=== PATIENT | male | born 1945 | race Caucasian/White ===

== ENCOUNTER → 2017-02-26 | Outpatient (CLI) | payer OTHER, BC ==
[~2017-02-26] MED LIST: ACYCLOVIR 200200 MG PO; ACYCLOVIR 400400 MG PO; ASPIRIN EC81 M1 PO; ATORVASTATIN CA40 MG PO; COUMADIN 1MG TAB1 M1 PO; COUMADIN 2 MG TA2 M1 PO; COUMADIN 3 MG TA3 MG PO; DAILY MULTIVIT1 EAC1 PO; ERYTHROMYCIN E3.5 G1 OP; FOLIC ACID0.4 MG PO; FOLIC ACID1 MG PO; K-DUR 20 MEQ T20 MEQ PO; LASIX 40 MG TAB40 M2 PO; LEVAQUIN 500 M500 M1 PO; LEVAQUIN 500 M500 M2 PO; LEVOTHROID150 MC1 PO; LEVOTHYROXIN0.137 M1 PO; LIPITOR80 MG PO; LISINOPRIL20 MG PO; LISINOPRIL5 MG PO; LOPRESSOR 12.12.5 MG PO; LOPRESSOR25 PO; LOVENOX SC; METOPROLOL TART25 M1 PO; MULTAQ400 MG PO; MULTIVITAMINS PO; NIFEREX PO; NORVASC10 MG PO; PRILOSEC 20 MG20 MG PO; PRINIVIL10 MG PO; PRINIVIL20 MG PO; SIMVASTATIN40 MG PO; SYNTHROID112 MCG PO; TRAMADOL 50 MG50 MG PO; VYTORIN 10-401 EACH PO; ZESTRIL20 MG PO; ZETIA10 MG PO
== END ==
LOC: MRI 13:28
DX: M47.894 Other spondylosis, thoracic region (principal); G95.9 Disease of spinal cord, unspecified; M54.5 Low back pain

== ENCOUNTER → 2017-03-10 | Outpatient (CLI) | payer OTHER, BC | LOC: CAT 02:16 | DX: M47.892 Other spondylosis, cervical region (principal); G95.89 Other specified diseases of spinal cord; M54.2 Cervicalgia ==

== ENCOUNTER 2017-12-13 05:31 | Inpatient (IN) | payer OTHER, BC ==
[~2017-12-13] VITALS: Ht 180.3 cm; Wt 104.3 kg
[2017-12-13] VITALS (7 sets, daily range): BP systolic 112–176; BP diastolic 61–115
--- NOTE | ~2017-12-13 | EKG ---
[place] [address] [facility] [place] [place] [address] ELECTROCARDIOGRAM REPORT Name: JO NUNEZ Room #: 360-P ADM IN M.R.#: [id number] Admission: 12/13/17 Attend Phys: Brian Pinedo MD Discharge: Date of : 47 Report #: [id number] THIS REPORT FOR: //name// [facility] ED Test Date: 2017-12-13 Test Time: 05:54:06 Pat Name: JO NUNEZ Department: Room: 360 P Gender: M Front Maker Lockstitch: [email or web address] : 1945 Requested By: Brian Pinedo Order Number: [id number] MD: Garry Eric Measurements Intervals [place] Rate: 122 P: 88 DE: 118 QRS: 53 QRSD: 112 T: 71 QT: 316 QTc: 451 Interpretive Statements Probable atrial flutter with 2-1 AV conduction Incomplete left bundle branch block Low voltage, extremity leads Baseline wander in lead(s) V1 No previous ECGs available for comparison Electronically Signed On 12-13-2017 11:30:04 CLINICAL PROFESSOR by Garry Eric [email or web address] <ELECTRONICALLY SIGNED> By: Garry Eric MD, [facility] 12/13/17 1130 0554 0554 Garry Eric MD, [facility] /EPI
--- NOTE | ~2017-12-13 | HC ---
[facility] [place] [address] CONSULTATION Name: JO NUNEZ Room #: 360-P [facility] IN M.R.#: [id number] Admission: 12/13/17 Attend Phys: Brian Pinedo MD Discharge: Date of : 46 Report #: [id number] THIS REPORT FOR: //name// CC: Brian Sandoval REASON FOR CONSULTATION: Shortness of breath. HISTORY OF PRESENT ILLNESS: The patient is a 72-year-old gentleman with a complicated history including 3-vessel bypass and mitral valve repair for cardiogenic shock in 2009. Coronary angiography in November 2013 revealed patent grafts to the LAD, marginal branch and PDA. His ejection fraction is in the 40-45% range. His history includes atrial fibrillation and atrial flutter for which he has been maintained on beta blockade and anticoagulant therapy. Now presents with increasing shortness of breath with orthopnea. He reports that after cervical spine surgery last fall, his diuretic was discontinued. He denies chest heaviness or pressure or ischemic type symptoms. No history of near syncope or syncope. ALLERGIES: No known drug allergies. MEDICATIONS: Include warfarin, metoprolol 50 mg twice daily, Zetia 10 mg daily, lisinopril 20 mg daily, atorvastatin 40 mg daily. 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 He underwent left-sided Molina maze at the time of his surgery. SOCIAL HISTORY: He is a nonsmoker, occasional drinker. FAMILY HISTORY: Unremarkable for premature coronary disease. REVIEW OF SYSTEMS: All systems negative except as that noted above. PHYSICAL EXAMINATION: GENERAL: A pleasant gentleman in no distress. VITAL SIGNS: Blood pressure is 150/90, heart rate of 120 and regular. He is afebrile, 5 feet 11 inches tall, 230 pounds. HEENT: There are neither xanthelasma, subcutaneous xanthomata, oral mucosal or digital cyanosis or kyphoscoliosis present. CHEST: Reveals diminished breath sounds at both bases. CARDIAC: Reveals a tachycardic regular rate and rhythm with normal S1, S2. Jugular venous pressure is elevated. ABDOMEN: Soft and nontender. EXTREMITIES: Reveal 1+ pitting edema. Radial pulses are 2+. NEUROLOGIC: He is alert with a nonfocal exam. [address] [address] CONSULTATION Name: JO NUNEZ CRYSTAL Room #: 360-[facility] IN M.R.#: [id number] Admission: 12/13/17 Attend Phys: Brian Pinedo MD Discharge: Date of : 46 Report #: [id number] LABORATORY DATA: EKG from the Emergency Department was interpreted as sinus tachycardia, although I believe this to be atrial flutter with 2:1 AV conduction and left bundle branch block. Sodium 144, potassium 4.1, creatinine 1.0. ProBNP of 2816, troponin 0.15. INR of 3.3. White count 7.8, hemoglobin 12, hematocrit 38, platelet count 214. Chest x-ray suggests congestive heart failure. IMPRESSION: 1. Vmffn-pz-kikbkih systolic heart failure. 2. Atrial flutter with a rapid ventricular response. 3. Coronary artery disease with prior bypass; mitral valve repair. 4. Sleep apnea. 5. Hypertension. 6. Dyslipidemia. RECOMMENDATIONS: 1. Continued use of beta blockade, addition of low dose Cardizem for added rate control. 2. Intravenous diuretic therapy. I suspect that he will need diuretic going forward, may be not daily, but several days a week. 3. Continued anticoagulant therapy (INR 2-3 range). 4. Continued efforts towards aggressive risk factor modification. Further thoughts will be forthcoming based on this evaluation. Thank you for asking me to participate in the patient's care. <ELECTRONICALLY SIGNED> By: Garry Eric MD, [facility] 12/14/17 0908 1048 [id number] Garry Eric MD, FACC /nt
--- NOTE | ~2017-12-13 | EKG ---
[address] [place] [address] ELECTROCARDIOGRAM REPORT Name: JO NUNEZ Room #: 360-P ADM IN M.R.#: [id number] Admission: 12/13/17 Attend Phys: Brian Pinedo MD Discharge: Date of : 46 Report #: [id number] THIS REPORT FOR: //name// [facility] ED Test Date: 2017-12-13 Test Time: 05:56:37 Pat Name: JO NUNEZ Department: Room: 360 Gender: M Electron Beam Photo Mask Maker: [email or web address] : 1945 Requested By: Sebastian Foster Order Number: [id number] MD: Garry Eric Measurements Intervals [place] Rate: 122 P: 0 AL: 83 QRS: 67 QRSD: 110 T: 119 QT: 324 QTc: 462 Interpretive Statements Probable atrial flutter with 2-1 AV conduction Incomplete left bundle branch block Low voltage, extremity leads Baseline wander in lead(s) V2 Compared to ECG 10/13/2016 09:21:45 No significant change was found Electronically Signed On 12-13-2017 11:30:37 NAILER OPERATOR by Garry Eric [email or web address] <ELECTRONICALLY SIGNED> By: Garry Eric MD, [facility] 12/13/17 1130 0556 0556 Garry Eric MD, [facility] /EPI
[~2017-12-13 05:31] MED LIST changes: +COLCHICINE0.6 MG PO; +PREDNISONE 20 M20 MG PO
[2017-12-13] MEDS ORDERED: ALLOPURINOL 10100 M1 PO (06:27)
[2017-12-13] MEDS ORDERED: SYNTHROID50 MCG PO (06:28)
[2017-12-13 06:32] LABS: ABSOLUTE NEUTROPHILS 6.1 thou/uL (1.4-8.2); BASOPHILS 1.5 % (0.0-2.0); EOSINOPHILS 2.1 % (0.0-3.0); HEMATOCRIT 38.2 % (42.0-52.0); HEMOGLOBIN 12.2 gm/dL (14.0-18.0); LYMPHOCYTES 13.2 % (24.0-44.0); MCH 28.2 pg (26.0-34.0); MCHC 31.9 g/dL (28.0-37.0); MCV 88.4 fL (80.0-100.0); MONOCYTES 4.7 % (1.0-8.0); PLATELET COUNT 214 thou/uL (150-400); POLYS 78.5 % (36.0-66.0); RBC 4.32 mil/uL (4.50-6.00); RDW 18.5 % (10.5-14.5); WBC 7.8 thou/uL (4.0-11.0)
[2017-12-13 06:40] LABS: CALCIUM 9.3 mg/dL (8.5-10.1); POTASSIUM 4.1 mmol/L (3.5-5.1)
[2017-12-13 06:46] LABS: INR 3.3; PROTIME 33.2 Seconds (9.3-11.4)
[2017-12-13 06:48] LABS: TROPONIN-I 0.15 ng/mL (<0.06)
[2017-12-14 04:00] VITALS: BP 140/65
[2017-12-14 06:57] LABS: ABSOLUTE NEUTROPHILS 5.2 thou/uL (1.4-8.2); BASOPHILS 0.9 % (0.0-2.0); EOSINOPHILS 2.3 % (0.0-3.0); HEMATOCRIT 37.1 % (42.0-52.0); HEMOGLOBIN 11.8 gm/dL (14.0-18.0); LYMPHOCYTES 12.9 % (24.0-44.0); MCH 27.9 pg (26.0-34.0); MCHC 31.8 g/dL (28.0-37.0); MCV 87.5 fL (80.0-100.0); PLATELET COUNT 204 thou/uL (150-400); POLYS 77.9 % (36.0-66.0); RBC 4.24 mil/uL (4.50-6.00); RDW 18.7 % (10.5-14.5); WBC 6.7 thou/uL (4.0-11.0)
[2017-12-14 07:03] LABS: CALCIUM 9.2 mg/dL (8.5-10.1); CREATININE 1.1 mg/dL (0.7-1.3); POTASSIUM 3.7 mmol/L (3.5-5.1)
[2017-12-14 08:23] VITALS: BP 147/78
[2017-12-14 08:25] VITALS: BP 147/78
[2017-12-14 13:26] VITALS: BP 103/60
[2017-12-14 16:41] VITALS: BP 120/75
[2017-12-14 19:21] VITALS: BP 107/65
[2017-12-15 03:51] VITALS: BP 122/77
[2017-12-15 06:26] LABS: BASOPHILS 0.8 % (0.0-2.0); EOSINOPHILS 2.2 % (0.0-3.0); HEMATOCRIT 36.8 % (42.0-52.0); HEMOGLOBIN 11.7 gm/dL (14.0-18.0); LYMPHOCYTES 14.2 % (24.0-44.0); MCH 27.8 pg (26.0-34.0); MCHC 31.8 g/dL (28.0-37.0); MCV 87.5 fL (80.0-100.0); MONOCYTES 7.7 % (1.0-8.0); PLATELET COUNT 205 thou/uL (150-400); POLYS 75.1 % (36.0-66.0); RBC 4.21 mil/uL (4.50-6.00); RDW 18.6 % (10.5-14.5); WBC 6.7 thou/uL (4.0-11.0)
[2017-12-15 06:38] LABS: CALCIUM 9.2 mg/dL (8.5-10.1); CREATININE 1.1 mg/dL (0.7-1.3); POTASSIUM 3.9 mmol/L (3.5-5.1)
[2017-12-15 07:55] VITALS: BP 122/77
[2017-12-15] MEDS ORDERED: LASIX 40 MG TAB40 M2 PO (08:15)
[2017-12-15] MEDS ORDERED: POTASSIUM20 PO (08:22)
[2018-04-02] MEDS ORDERED: MULTIVITAMINS1 EAC7 PO (09:39)
[2018-04-02] MEDS ORDERED: NEURONTIN 300300 M1 PO (10:04)
[2018-06-02] MEDS ORDERED: ATORVASTATIN CA40 MG PO (08:02)
[2018-06-02] MEDS ORDERED: NEURONTIN 300300 M1 PO (08:02)
[2018-06-09] MEDS ORDERED: NEURONTIN 300300 M1 PO (08:21)
[2018-06-09] MEDS ORDERED: ATORVASTATIN CA40 MG PO (08:21)
== END 2017-12-15 10:55 | disposition home or self-care (01) | DRG 291 ==
LOC: ER 05:31 → TBA 07:29 → 3W 07:29
PROVIDERS: Emergency Medicine; Family Medicine
DX: I11.0 Hypertensive heart disease with heart failure (principal); E43 Unspecified severe protein-calorie malnutrition; I48.92 Unspecified atrial flutter; D68.59 Other primary thrombophilia; I50.43 Acute on chronic combined systolic (congestive) and diastolic (congestive) heart failure; I48.0 Paroxysmal atrial fibrillation; I25.5 Ischemic cardiomyopathy; I25.10 Atherosclerotic heart disease of native coronary artery without angina pectoris; E78.5 Hyperlipidemia, unspecified; G47.33 Obstructive sleep apnea (adult) (pediatric); Z79.82 Long term (current) use of aspirin; Z79.899 Other long term (current) drug therapy; I25.2 Old myocardial infarction; Z79.01 Long term (current) use of anticoagulants; Z95.1 Presence of aortocoronary bypass graft; Z82.49 Family history of ischemic heart disease and other diseases of the circulatory system; Z83.3 Family history of diabetes mellitus; Z82.3 Family history of stroke
CPT/HCPCS: 10779

== ENCOUNTER → 2018-04-02 | Outpatient (CLI) | payer OTHER, BC ==
[~2018-04-02] VITALS: Ht 180.3 cm; Wt 105.2 kg
[~2018-04-02] MED LIST changes: +ALLOPURINOL 10100 M1 PO; +MULTIVITAMINS1 EAC7 PO; +NEURONTIN 300300 M1 PO; +POTASSIUM20 PO; +SYNTHROID50 MCG PO
--- NOTE | ~2018-04-02 | HPC ---
[facility] [place] [address] PAIN MANAGEMENT CONSULTATION Name: ENRIQUEJO CRYSTAL Room #: REG [facility] Fany.#: [id number] Admission: 04/02/18 Attend Phys: Lee Mario DO Discharge: Date of : 46 Report #: [id number] THIS REPORT FOR: //name// CC: Chasity Rivera-Jos Mario DATE OF SERVICE: 04/02/2018 The patient is a 72-year-old gentleman, prior seen by Dr. Jj Weber for axial back pain and cervicalgia. He did well with epidural injection at L4-L5. Lumbar facet had afforded nominal relief per the dictations. He is somewhat lost to follow up after 09/2016. He returns to Pain Clinic today with a new complaint. He has had multiple interventions in a year and a half since he was seen. We spent approximately 30 minutes together today reviewing interval health history and current complaint. The patient states that he developed low back pain and subsequently had a cervical posterior fusion 08/05/2017. He states following the fusion, he had burning paresthesia and dysesthesia in the left lower leg lateral aspect. He subsequently had lumbar decompressive laminectomy at L2-L3 and lumbar fusion at L5-S1. This was primarily done for left hip pain. The patient notes that the left lateral lower extremity dysesthesia predated the back surgery. He denies saddle anesthesia, bowel or bladder continence changes. He does deny any weakness though notes that he has a "catch" in his left hip. PHYSICAL EXAMINATION: Does show an antalgic gait, somewhat ataxic. Flexion is limited to 45 degrees. Slight decreased right lower extremity extension strength about 3/5, contralateral to the left-sided pain. Otherwise, strength is 4/5. Patellar and Achilles reflexes, patellar reflexes are preserved, 2/4; Achilles reflex is absent on the left 1/4 on the right. Straight leg raise is negative. Does have intact 2-point discrimination of lower extremity despite the subjective paresthesia in the left lower extremity. He is tender over the SI joints and has equivocally positive Rayo and Gaenslen's test on the left. ASSESSMENT: 1. Neuropathic pain requiring complex medication management status post both cervical and decompressive laminectomies. Left L4 distribution neuropathy, status post a cervical posterior fusion. 2. Left sacroiliac mediated pain by clinical exam and history. RECOMMENDATIONS: 1. Gabapentin 300 mg at bedtime for 7 days and then 2 at bedtime. Hopefully, this will help with the burning dysesthesia in left lower leg. May be considered a spinal cord stimulator candidate, though he is on Coumadin, which does complicate this decision process. 2. Left SI joint injection under fluoroscopy today. [place] [address] PAIN MANAGEMENT CONSULTATION Name: JO NUNEZ Room #: REG MIRA Rivera#: [id number] Admission: 04/02/18 Attend Phys: Lee Mario DO Discharge: Date of : 46 Report #: [id number] Gus as needed. PROCEDURE NOTE: Left SI joint injection under fluoroscopy. PROCEDURE: After written informed consent was obtained, the patient was taken to the fluoroscopy suite and placed in prone position. After sterile prep and drape, skin wheal was raised. A 22-gauge stylet needle was placed to contact the inferior aspect of the left SI. Negative aspiration was accomplished. A 1 mL of Omnipaque was injected, which showed spread within the joint followed with 40 mg triamcinolone plus 2 mL of 0.5% preservative-free bupivacaine. Needle was removed, area was cleaned, Band-Aid was applied. The patient monitored for an appropriate period of time, discharged in good and stable condition. <ELECTRONICALLY SIGNED> By: Lee Mario DO 04/07/18 0725 [id number] Lee Mario DO /nt
[2018-04-02 09:31] VITALS: BP 139/91
== END | disposition home or self-care (01) ==
LOC: PAIN 07:36
DX: M53.3 Sacrococcygeal disorders, not elsewhere classified (principal); M79.2 Neuralgia and neuritis, unspecified; I11.0 Hypertensive heart disease with heart failure; I50.9 Heart failure, unspecified; M10.9 Gout, unspecified; Z98.890 Other specified postprocedural states; Z79.01 Long term (current) use of anticoagulants; Z79.899 Other long term (current) drug therapy; Z79.82 Long term (current) use of aspirin

== ENCOUNTER → 2018-06-02 | Outpatient (CLI) | payer OTHER, BC ==
[~2018-06-02] VITALS: Ht 182.9 cm; Wt 108.9 kg
--- NOTE | ~2018-06-02 | HPC ---
[facility] [place] [address] PAIN MANAGEMENT CONSULTATION Name: ENRIQUEJO CRYSTAL Room #: REG [facility] Fany.#: [id number] Admission: 06/02/18 Attend Phys: Mariely Broussard MD Discharge: Date of : 46 Report #: [id number] THIS REPORT FOR: //name// CC: Mariely Sandoval MD DATE OF SERVICE: 06/02/2018 FOLLOWUP COMPLAINT: Here for evaluation of back pain. FOLLOWUP HISTORY: The patient is a 72-year-old gentleman who has been seen in the pain clinic in the past because of cervical problems. He has since had cervical surgery and noted improvement. He had some problems with his back. He had undergone epidural steroid injections. He underwent surgery for the L4-L5 area to help control his lumbar radicular pain. He returns to the pain clinic today indicating that he is having some pain in his low back as well as down into his left morales. He was seen at the last visit to the Pain Clinic underwent a SI joint injection. He noted above 50% improvement in pain, but still continues to have pain that is problematic in the lower portion of his back with pain that radiates along the lateral portion of his posterior calf. There is burning and tingling sensation. He rates it as a 3-4. Pain is worse with walking, standing, and he is not sure of anything that totally alleviate his pain. Last surgery on the back was on 01/06/2018. He is on Coumadin and is being anticoagulated. He states that he has had a heart valve replacement in the past. ALLERGIES: No known drug allergies. MEDICATIONS: Gabapentin 300 mg, Lipitor 40 mg, multivitamin, Synthroid 50 mcg, Zyloprim 100 mg, lisinopril 20 mg, Zetia 10 mg, Coumadin 2 mg, Lopressor 25 mg twice a day, and aspirin 81 mg. PAST MEDICAL HISTORY: Type 2 diabetes, heart valve surgery, and hypertension. SOCIAL HISTORY: He is retired, does not smoke, does not drink. He is . REVIEW OF SYSTEMS: Generally good health, ringing in the ears, and heart trouble. PAIN CLINIC ASSESSMENT: 1. Osteoarthritis. The patient is being treated for osteoarthritis. He is not being treated for rheumatoid arthritis. 2. Height 6 feet 0 inches. Weight 240 pounds, BMI 32.5 minutes. 3. Vital signs: Blood pressure 147/98, pulse 78, respiratory rate 16, room air saturation is 98%. [facility] [address] [place] [address] PAIN MANAGEMENT CONSULTATION Name: JO NUNEZ Room #: REG [facility]#: [id number] Admission: 06/02/18 Attend Phys: Mariely Broussard MD Discharge: Date of : 46 Report #: [id number] 4. Pain intensity 3-4. 5. Fall risk. The patient has not fallen in the last 3 months. 6. Blood thinner. The patient is on Coumadin. 7. History of hypertension. The patient is being treated for hypertension. 8. Opioid greater than 6 weeks. The patient is not on opioid medication. 9. Risk assessment tool, low for opioid use. 10. Functional assessment tool, . 11. Recreational drug use. The patient denies use of recreational drugs. 12. Tobacco: The patient has never smoked. 13. Alcohol: The patient denies use of alcoholic beverages. PHYSICAL EXAMINATION: GENERAL: The patient is a well-developed, well-nourished white male. He appears his stated age. He is alert and oriented x 3. Affect is appropriate. Speech is fluent. HEENT: Normocephalic, atraumatic. Extraocular eye muscles intact. NECK: The patient has a long scar in the posterior portion of his neck after having gone cervical repair of his neck. No adenopathy. HEART: Regular rate. CHEST: Clear to auscultation. ABDOMEN: Protuberant. MUSCULOSKELETAL: Upper muscle strength is judged to be 4.5/5. Lower muscle strength is judged to be 4.5/5 for lower muscle strength. The patient walks with a slightly antalgic gait. IMPRESSION: 1. History of lumbar radiculopathy and status post surgery in December 2017 for lumbar surgery. 2. Cervical radicular history status post cervical fusion. 3. Neuropathic pain. 4. History of left sacroiliitis. 5. Hypercholesterolemia. 6. Hypertension. RECOMMENDATIONS: We discussed treatment options with the patient. The patient continued to have some pain and discomfort. Pain is radiating down the posterior portion of his left leg. It is in the L5-S1 dermatomal distribution. He will return to the pain clinic at which time a transforaminal epidural steroid injection will be provided. The risks and benefits of the procedure were discussed. The patient is on Coumadin. He will discontinue his Coumadin. He will follow with his heart doctor to see if he is able to come off Coumadin. He will return to the pain clinic at which time he will undergo treatment for his radicular pain. Risks and benefits as we discussed have been reviewed and [facility] [address] [place] [address] PAIN MANAGEMENT CONSULTATION Name: JO NUNEZ Room #: LITO Rivera#: [id number] Admission: 06/02/18 Attend Phys: Mariely Broussard MD Discharge: Date of : 46 Report #: [id number] the patient would like to proceed. We would like to thank you for letting us participate in his care. We hope he continues to improve. <ELECTRONICALLY SIGNED> By: Mariely Broussard MD 06/04/18 1631 1039 1406 Mariely Broussard MD /[facility]
[2018-06-02 08:59] VITALS: BP 147/98
== END ==
LOC: PAIN 04-16 06:54
DX: M54.2 Cervicalgia (principal); M54.5 Low back pain; M79.1 Myalgia; E78.00 Pure hypercholesterolemia, unspecified; I10 Essential (primary) hypertension; E11.9 Type 2 diabetes mellitus without complications

== ENCOUNTER → 2018-06-09 | Outpatient (CLI) | payer OTHER, BC ==
[~2018-06-09] VITALS: Ht 180.3 cm; Wt 108.0 kg
--- NOTE | ~2018-06-09 | HPC ---
[facility] [place] [address] PAIN MANAGEMENT CONSULTATION Name: JO NUNEZ Room #: REG [facility] Nicole#: [id number] Admission: 06/09/18 Attend Phys: Mariely Broussard MD Discharge: Date of : 46 Report #: [id number] THIS REPORT FOR: //name// CC: Mariely Sandoval MD DATE OF SERVICE: 06/09/2018 PRIMARY CARE PHYSICIAN: Chasity Sandoval MD FOLLOWUP COMPLAINT: Here for another injection. FOLLOWUP HISTORY: The patient is a 72-year-old gentleman who has been seen in the pain clinic because of cervical radicular problems. He also has problems with his low back area. He has undergone surgery in the L4-L5 area with placement of rods and screws. He is having some pain and discomfort, which is radiating down his low back with a burning pain in his "shins" as well as some discomfort in the area of his knee and ankle on the left. He underwent surgery on 01/06/2018. Notes that his pain is worse with activities of daily living such as walking, standing and improves when he is sitting or lying down. At this juncture, he feels that the pain has increased and would like to consider treatment for this area. He did have some problem with his SI joint in the past. Pain was at a 3-4, but now has risen to that of a 5. He was on Coumadin and has stopped his Coumadin with the hope of proceeding with a transforaminal epidural steroid injection. The patient does have a heart valve replacement. ALLERGIES: No known drug allergies. MEDICATIONS: Gabapentin 300 mg, Lipitor 40 mg, multivitamin, Synthroid 50 mcg, Zyloprim 100 mg, lisinopril 20 mg, Zetia 10 mg, Coumadin 2 mg, Lopressor 25 mg b.i.d., aspirin 81 mg. PAIN CLINIC ASSESSMENT: 1. Osteoarthritis. The patient is being treated for osteoarthritis. He has not been treated for rheumatoid arthritis. 2. Height 6 feet 0 inches, weight 238 pounds, BMI is 33. 3. Vital signs: Blood pressure 120/75, pulse 58, respiratory rate 14, room air saturation 95%. 4. Pain intensity 03/18. 5. Fall risk. The patient has not fallen in the last 3 months. 6. Blood thinner. The patient is on Coumadin, has stopped taking this medication with the thought of undergoing a transforaminal epidural steroid injection today. 7. History of hypertension. The patient is being treated for hypertension. 8. Opioid therapy greater than 6 weeks. The [place] [address] PAIN MANAGEMENT CONSULTATION Name: JO NUNEZ Room #: REG MIRA Rivera#: [id number] Admission: 06/09/18 Attend Phys: Mariely Broussard MD Discharge: Date of : 46 Report #: [id number] medication. 9. Risk assessment tool, low for use of opioids. 10. Functional assessment tool, . 11. Recreational drug use. The patient denies use of recreational drugs. 12. Tobacco. The patient has never smoked cigarettes. 13. Alcohol. The patient denies use of alcoholic beverages. PHYSICAL EXAMINATION: GENERAL: The patient is a well-developed, well-nourished white male. Appears his stated age. He is alert and oriented x 3. Affect is appropriate. Speech is fluent. HEENT: Normocephalic, atraumatic. Extraocular eye muscles intact. Sclerae nonicteric. The patient has a long scar in the posterior portion of his neck having undergone cervical repair of his neck. No adenopathy. HEART: S1 and S2 normal. Regular rate. The patient has a heart valve replacement. Clear to auscultation. ABDOMEN: Protuberant. MUSCULOSKELETAL: Upper muscle strength is judged to be 4.5/5. Lower extremity muscle strength is judged to be 4.5/5 for the lower extremity muscles. The patient walks with slight antalgic gait. IMPRESSION: 1. Lumbar radiculopathy, status post surgery in 12/2017 for lumbar surgery. 2. Cervical radiculopathy history, status post cervical fusion. 3. Neuropathic pain. 4. History of left sacroiliitis. 5. Hypercholesterolemia. 6. Hypertension. RECOMMENDATIONS: We discussed treatment options with the patient. Risks and benefits of a transforaminal epidural steroid injection were again reviewed. Possible complications of the procedure were discussed and the patient elects to proceed. PROCEDURE NOTE: The patient was placed in the prone position. Fluoroscopy was used to identify the L5-S1 distribution on the left. A 22-gauge needle spinal was then placed and advanced into the L5-S1 area using fluoroscopy. The patient had been assisted in the procedure room. He was placed on the table in the appropriate position. Fluoroscopy using anterior, posterior as well as lateral imaging were used to proceed. This area had been sterilely prepped with Betadine and infiltrated with 0.25% bupivacaine. A total of 80 mg Depo-Medrol, 40 mg triamcinolone was then advanced into this area. The patient tolerated the procedure well. There were no complications. Pain decreased to 2 at the time of discharge. He remained in the pain clinic for an appropriate amount of time. A 22 seconds fluoroscopy time was used. The patient will follow up in the [facility] [address] [place] [address] PAIN MANAGEMENT CONSULTATION Name: JO NUNEZ Room #: REG MIRA Rivera#: [id number] Admission: 06/09/18 Attend Phys: Mariely Broussard MD Discharge: Date of : 46 Report #: [id number] future as needed. We would like to thank you for letting us participate in his care. We hope he continues to improve. By: [id number] Mariely Broussard MD /DENISSE
[2018-06-09 08:18] LABS: INR 1.2; PROTIME 11.6 Seconds (9.3-11.4)
[2018-06-09 08:47] VITALS: BP 120/75
== END | disposition home or self-care (01) ==
LOC: PAIN 06:33
PROVIDERS: Anesthesiology Pain Medicine
DX: M54.16 Radiculopathy, lumbar region (principal); I10 Essential (primary) hypertension; E78.00 Pure hypercholesterolemia, unspecified; M19.90 Unspecified osteoarthritis, unspecified site; Z79.899 Other long term (current) drug therapy; Z98.890 Other specified postprocedural states; Z98.1 Arthrodesis status; Z87.39 Personal history of other diseases of the musculoskeletal system and connective tissue; Z79.82 Long term (current) use of aspirin; Z79.01 Long term (current) use of anticoagulants; Z79.891 Long term (current) use of opiate analgesic; Z95.2 Presence of prosthetic heart valve

== ENCOUNTER 2019-07-06 18:19 | Inpatient (IN) | payer OTHER ==
[~2019-07-06] VITALS: Ht 180.3 cm; Wt 99.3 kg
[2019-07-06 18:20] VITALS: BP 78/42
--- NOTE | 2019-07-06 18:29 | NUR ---
PT. WITH DECREASED BP IN TRIAGE. PT. DIRECT TO EXAM ROOM
[2019-07-06 18:57] LABS: HEMATOCRIT 42.7 % (42.0-52.0); MCH 29.2 pg (26.0-34.0); MCHC 32.8 g/dL (28.0-37.0); MCV 88.9 fL (80.0-100.0); PLATELET COUNT 220 thou/uL (150-400); RBC 4.81 mil/uL (4.50-6.00); RDW 17.6 % (10.5-14.5); WBC 12.2 thou/uL (4.0-11.0)
[2019-07-06 19:12] LABS: ALBUMIN 3.2 g/dL (3.4-5.0); CALCIUM 9.1 mg/dL (8.5-10.1); CREATININE 2.2 mg/dL (0.7-1.3); TOTAL BILIRUBIN 0.7 mg/dL (<0.1-1.0); TOTAL PROTEIN 6.6 g/dL (6.4-8.2)
[2019-07-06 19:17] LABS: POTASSIUM 2.4 mmol/L (3.5-5.1)
[2019-07-06 19:27] LABS: MAGNESIUM 1.8 mg/dL (1.8-2.4); TROPONIN-I 0.33 ng/mL (<0.06)
[2019-07-06 19:44] LABS: ABSOLUTE NEUTROPHILS 8.8 thou/uL (1.4-8.2)
[2019-07-06 19:45] LABS: ANISOCYTOSIS 1+; POIKILOCYTOSIS 1+
[2019-07-06 20:15] VITALS: BP 92/45
[2019-07-06 22:00] VITALS: BP 158/87
[2019-07-06 22:15] VITALS: BP 116/72
--- NOTE | 2019-07-07 03:46 | NUR ---
PT ARRIVED UNIT AT ABOUT 2200. PT A/OX4, VITAL SIGNS STABLE, ASSESSMENT CHARTED. PT ON 2L OX, NO COMPLAINTS OF SOB. NO COMPLAINTS OF PAIN, NO COMPLAINTS OF CHEST PAIN. ADMISSION COMPLETED. UNABLE TO COMPLETE MEDICATION RECONCILIATION, PT UNSURE OF WHAT SPECIFIC MEDICATIONS HE TAKES AT HOME. PT VERBALIZED HE WILL HAVE FAMILY BRING A COPY OF HIS MEDICATIONS. ELECTROLYTES REPLACED ORDERED. PT RESTED WELL FOR REST OF NIGHT. FALL PRECAUTIONS MAINTAINED. PROGRESING TOWARD PLAN OF CARE. WILL CONTINUE TO MONITOR.
[2019-07-07 05:10] VITALS: BP 150/93
[2019-07-07 05:40] LABS: HEMATOCRIT 38.7 % (42.0-52.0); HEMOGLOBIN 12.6 gm/dL (14.0-18.0); MCH 29.2 pg (26.0-34.0); MCHC 32.6 g/dL (28.0-37.0); MCV 89.4 fL (80.0-100.0); RBC 4.33 mil/uL (4.50-6.00); RDW 17.7 % (10.5-14.5); WBC 9.3 thou/uL (4.0-11.0)
[2019-07-07 06:53] LABS: CALCIUM 8.5 mg/dL (8.5-10.1); CREATININE 1.9 mg/dL (0.7-1.3)
[2019-07-07 06:57] LABS: POTASSIUM 2.6 mmol/L (3.5-5.1)
[2019-07-07 08:00] VITALS: BP 110/68
--- NOTE | 2019-07-07 08:37 | EKG ---
[address] [address] ELECTROCARDIOGRAM REPORT Name: JO NUNEZ Room #: 216-P ADM IN M.R.#: [id number] Admission: 07/06/19 Attend Phys: Rafia Overton Discharge: Date of : 46 Report #: [id number] THIS REPORT FOR: //name// [facility] ED Test Date: 2019-07-06 Test Time: 19:28:46 Pat Name: JO NUNEZ Department: Room: 216 Gender: M Solar Sales Consultant: STEPHANIE : 1945 Requested By: Tacos Thompson Order Number: [id number] MD: Santy Mayo Measurements Intervals [place] Rate: 65 P: 0 RI: 148 QRS: 7 QRSD: 130 T: 166 QT: 407 QTc: 424 Interpretive Statements Sinus rhythm Nonspecific intraventricular conduction delay Baseline wander in lead(s) V1 Compared to ECG 12/13/2017 05:56:37 Electronically Signed On 07-07-2019 8:37:42 CDT by Santy Mayo [email or web address] <ELECTRONICALLY SIGNED> By: Santy Mayo MD 07/07/19 0837 27 27 Santy Mayo MD /JARON
[2019-07-07 11:20] VITALS: BP 140/83
--- NOTE | 2019-07-07 13:00 | NUR ---
Case opened to follow for dc planning. Pt admitted with n/v with recent pain pump placement/med adjustments. Crosstie Inspector visited with the pt's dtr Julianne this am she takes care of the pt and his at home. She reports that until few weeks ago the pt was completely indep, active and driving. He has gone down hill since the pain pump was placed. He has had increased dizziness and weakness. PT/OT evals requested. Pt has not had any HH and does not use any dme. Cm role introduced. Will follow for possible hh referral.
--- NOTE | 2019-07-07 16:16 | NUR ---
ASSESSMENT CHARTED. PT ALERT AND ORIENTED. PLEASANT AND COOPERATIVE WITH CARES. HAD ONE EPISODE OF EMESIS THIS SHIFT. REPORT HAVING CHRONIC BACK PAIN. HAD CRITICAL POTASSIUM LEVEL THIS AM. RESULTS CALLED IN TO DR. ASHTON. ORDERS RECEIVED. EVALUATED BY PT AND OT. FALL PRECAUTION IN PLACE WILL CONTINUE TO MONITOR. NO CONCERNS AT THIS THIS TIME. WILL CONTINUE TO MONITOR.
[2019-07-07 16:23] VITALS: BP 138/75
[2019-07-07 18:22] LABS: MAGNESIUM 1.8 mg/dL (1.8-2.4)
[2019-07-07 18:27] LABS: POTASSIUM 2.8 mmol/L (3.5-5.1)
[2019-07-07 19:35] VITALS: BP 94/77
[2019-07-08 00:22] VITALS: BP 95/60
[2019-07-08 04:35] VITALS: BP 114/71
[2019-07-08 06:04] LABS: PROTIME 125.7 Seconds (9.3-11.4)
[2019-07-08 06:07] LABS: INR 12.3
[2019-07-08 06:08] LABS: ALBUMIN 2.7 g/dL (3.4-5.0); CALCIUM 8.7 mg/dL (8.5-10.1); CREATININE 1.6 mg/dL (0.7-1.3); PHOSPHORUS 3.7 mg/dL (2.5-4.9); TROPONIN-I 0.3 ng/mL (<0.06)
[2019-07-08 06:15] LABS: POTASSIUM 2.9 mmol/L (3.5-5.1)
--- NOTE | 2019-07-08 06:51 | NUR ---
ASSUME CARE 1900. PT/VITALS STABLE. DENIES PAIN. UP WITH ASSISTANCE TO BATHROOM. ASSESSMENT CHARTED. VOMITING/DIARRHEA NOTED THROUGH THE NIGHT. BP SOFT/ ELECTROLYTES IMBALANCED. PROGRESING MODERATELY WITH POC. PLAN IS TO CONTINUE TO MONITOR ELECTROLYTES/V/N. WILL CONTINUE TO FOLLOW ITH POC
[2019-07-08 07:14] LABS: INR 12.4; PROTIME 126.7 Seconds (9.3-11.4)
[2019-07-08 08:20] VITALS: BP 126/86
[2019-07-08 08:37] LABS: TOTAL BILIRUBIN 0.6 mg/dL (<0.1-1.0); TOTAL PROTEIN 6.6 g/dL (6.4-8.2)
--- NOTE | 2019-07-08 09:19 | HC ---
[facility] [address] [place] [address] CONSULTATION Name: JO NUNEZ Room #: 216-P [facility] IN ..#: [id number] Admission: 07/06/19 Attend Phys: Rafia Overton Discharge: Date of : 47 Report #: [id number] THIS REPORT FOR: //name// [facility] DATE OF SERVICE: 07/07/2019 CARDIOLOGY CONSULTATION INDICATION: Coronary artery disease. HISTORY OF PRESENT ILLNESS: This is a 74-year-old gentleman with a history of CAD/FL/CABG, CHF, hypertension, paroxysmal atrial fibrillation, chronic back pain who presents with generalized weakness. For the past 4 days, he has had abdominal pain with significant amount of vomiting. He has had diminished oral intake during this time. The family also notes some confusion, which has resolved. He slipped off the bed and was unable to get up. Presently, he denies any episodes of chest pains or shortness of breath. There is no recent history of fever or chills. PAST MEDICAL HISTORY: 1. FL in 2011, undergoing CABG. 2. History of CHF in 2018, improved with diuresis. History of paroxysmal atrial fibrillation/flutter. History of hypertension, edema, hypercholesterolemia. Chronic back pains with spinal stenosis. ALLERGIES: None. MEDICATIONS AT HOME: Include aspirin once a day, Lipitor 80 mg daily, Zetia, Synthroid, lisinopril 20 mg daily, metoprolol and warfarin. SOCIAL HISTORY: Negative for tobacco use. FAMILY HISTORY: Negative for premature CAD. REVIEW OF SYSTEMS: A full 10-point review of systems performed. Only the pertinent positives and negatives are described in the HPI. PHYSICAL EXAMINATION: VITAL SIGNS: Blood pressure is 110/60, heart rate 67 beats per minute. GENERAL APPEARANCE: He is an overweight male in no acute distress. HEENT: Normocephalic, atraumatic. NECK: Supple. LUNGS: Clear to auscultation. CARDIAC: Regular rate and rhythm, S1, S2 positive. [facility] [address] [place] [address] CONSULTATION Name: JO NUNEZ Room #: 216-[facility] IN [facility].#: [id number] Admission: 07/06/19 Attend Phys: Rafia Overton Discharge: Date of : 47 Report #: [id number] ABDOMEN: Soft, nontender. EXTREMITIES: No cyanosis. Trace edema. ECG reveals sinus rhythm, left bundle-branch block. LABORATORY VALUES: Sodium is 143, potassium 2.4, creatinine is 2.2. Troponin is 0.33. White count is 12.2, hemoglobin 14.0. ASSESSMENT AND PLAN: 1. Nausea/vomiting/abdominal pain, rule out enteritis, rule out ileus. 2. Acute kidney injury, most likely due to dehydration. Hydrate with fluids for now. Has hypokalemia, replete potassium. 3. Coronary artery disease/coronary artery bypass graft, minimal troponin elevation with no complaints of angina or dyspnea. The significance is unclear in the setting of acute kidney injury. May be related to oxygen/demand mismatch. We will follow for now. Repeat echocardiogram. 4. Hypertension, continue with hydration and hold medications. 5. Paroxysmal atrial fibrillation, hold warfarin at this time. <ELECTRONICALLY SIGNED> By: Sandro Maurice MD 07/08/19 0919 1103 2238 Sandro Maurice MD /nt
[2019-07-08 12:30] VITALS: BP 136/82
[2019-07-08 13:25] VITALS: BP 118/77
--- NOTE | 2019-07-08 13:27 | 2DMMODE ---
[facility] [address] [place] [address] 2 D/M-MODE ECHOCARDIOGRAM Name: JO NUNEZ Room #: 216-P [facility] IN [facility].#: [id number] Admission: 07/06/19 Attend Phys: Rafia Jay Discharge: Date of : 47 Date of Service: 07/08/19 1327 Report #: [id number] THIS REPORT FOR: //name// APPROVED REPORT Study performed: 07/08/2019 11:51:19 EXAM: Comprehensive 2D, Doppler, and color-flow Echocardiogram Patient Location: Bedside Room #: 216 Status: routine BSA: 2.13 HR: 92 bpm BP: 126/86 mmHg Rhythm: Atrial Fibrillation Other Information Study Quality: Technically Difficult Technically limited study due to body habitus. Indications Congestive Heart Failure CAD Hypertension/HDD Echo Enhancing Agent Indication: Endocardial border delineation Agent(s) / Amount(s) Used: Optison 3 cc 2D Dimensions RVDd: 34.24 mm IVSd: 15.62 (7-11mm) LVOT Diam: 23.17 (18-24mm) LVDd: 55.73 mm PWd: 16.00 (7-11mm) LVDs: 35.47 (25-40mm) Aortic Root: 32.83 mm Volumes Left Atrial Volume (Systole) Single Plane 4CH: 67.08 mL Single Plane 2CH: 46.30 mL LA ESV Index: 29.00 mL/m2 Aortic Valve AoV Peak Alejandro.: 0.90 m/s [facility] [address] [address] 2 D/M-MODE ECHOCARDIOGRAM Name: JO NUNEZ Room #: 216-P [facility] IN ..#: [id number] Admission: 07/06/19 Attend Phys: Rafia Jay Discharge: Date of : 47 Date of Service: 07/08/19 1327 Report #: [id number] AO Peak Gr.: 3.26 mmHg LVOT Max P.66 mmHg LVOT Max V: 0.64 m/s ALISHA Vmax: 3.00 cm2 Mitral Valve MV Decel. Time: 216.10 ms MV E Max Alejandro.: 1.50 m/s IVRT: 89.97 ms Pulmonary Valve PV Peak Alejandro.: 0.85 m/s PV Peak Gr.: 2.86 mmHg Tricuspid Valve TR Peak Alejandro.: 3.04 m/s TR Peak Gr.: 36.99 mmHg Left Ventricle Left ventricle is at the upper limits of normal. Moderate concentric left ventricular hypertrophy. Left ventricular systolic function is mildly decreased. LVEF is 45%. This study is not technically sufficient to allow evaluation of the LV diastolic function due to atrial fibrillation. Right Ventricle The right ventricle is normal size. Atria The left atrium size is normal. Right atrium is at the upper limits of normal. Aortic Valve Aortic valve is mildly calcified. No aortic regurgitation is present. There is no aortic valvular stenosis. Mitral Valve 32 mm annuloplasty ring is noted in the mitral position. Trace mitral regurgitation. No evidence of mitral valve stenosis. Tricuspid Valve The tricuspid valve is normal in structure. Mild tricuspid regurgitation. PAP is estimated at 37 mmHg + estimated RA pressure. Pulmonic Valve Pulmonic valve is not well visualized. [facility] [address] [address] 2 D/M-MODE ECHOCARDIOGRAM Name: JO NUNEZ Lula Room #: 216-P [facility] IN ..#: [id number] Admission: 07/06/19 Attend Phys: Rafia Jay Discharge: Date of : 47 Date of Service: 07/08/19 1327 Report #: [id number] Great Vessels The aortic root is normal in size. IVC is not visualized. Pericardium There is no pericardial effusion. <Conclusion> Left ventricle is at the upper limits of normal. Moderate concentric left ventricular hypertrophy. Left ventricular systolic function is mildly decreased. The right ventricle is normal size. The left atrium size is normal. Aortic valve is mildly calcified. 32 mm annuloplasty ring is noted in the mitral position. Trace mitral regurgitation. Mild tricuspid regurgitation. PAP is estimated at 37 mmHg + estimated RA pressure. <ELECTRONICALLY SIGNED> By: Sandro Maurice MD 07/08/19 1327 26 1327 Sandro Maurice MD /ANAM
[2019-07-08 15:44] LABS: MAGNESIUM 1.6 mg/dL (1.8-2.4)
[2019-07-08 15:45] LABS: POTASSIUM 2.8 mmol/L (3.5-5.1)
--- NOTE | 2019-07-08 16:41 | NUR ---
ASSESSMNT CHARTED. PT ALERT AND ORIENTED. VSS. NO EMESIS THIS SHIFT. HAD ONE EPISODE OF DIARRHEA THIS AM. PRN IMMODIUM GIVEN. CRITICAL POTASSIUM CALLED IN TO DR ASHTON. ORDERS NOTED. NO CONCERNS AT THIS TIME. WILL CONTINUE TO MONITOR.
[2019-07-08 21:47] VITALS: BP 134/87
[2019-07-09 02:56] LABS: PROTIME 26.6 Seconds (9.3-11.4)
[2019-07-09 02:58] LABS: INR 2.6
[2019-07-09 03:03] LABS: ALBUMIN 1.1 g/dL (3.4-5.0); POTASSIUM 3.2 mmol/L (3.5-5.1); TROPONIN-I 0.21 ng/mL (<0.06)
[2019-07-09 03:15] LABS: CALCIUM 6.6 mg/dL (8.5-10.1); CREATININE 0.2 mg/dL (0.7-1.3)
[2019-07-09 06:16] VITALS: BP 110/66
--- NOTE | 2019-07-09 07:59 | NUR ---
ASSUME CARE 1900. PT/VITALS STABLE. DENIES ANY PAIN. NAUSEA/VOMITING AND DIARRHEA NOTED THROUGH THE NIGHT. POTASSIUM AND MAGNESIUM LEVELS INPROVING BUT NOT STABLE YET. ASSESSMENT CHARTED. PROGRESSING SLOWLY WITH POC. PLAN IS CONTINUE TO MONITOR ELECROLYTES AND N/V/D. WILL CONTINUE TO FOLLOW WITH POC
[2019-07-09 08:01] VITALS: BP 140/76
[2019-07-09 11:57] VITALS: BP 117/55
[2019-07-09 16:20] VITALS: BP 92/49
[2019-07-09 16:48] VITALS: BP 99/63
--- NOTE | 2019-07-09 19:33 | NUR ---
ASSUMED CARE AT SHIFT CHANGE, ALERT AND ORIENTED X4. PATIENT DENIES ANY DISCOMFORT. PROGRESSING TOWARD GOALS. NO N/V/D TODAY, K+ LEVEL 3.2 AND TOLERATED FOOD WELL. AND WILL CONTINUE WITH POC.
[2019-07-09 20:04] VITALS: BP 105/77
[2019-07-10 05:44] VITALS: BP 101/64
--- NOTE | 2019-07-10 06:05 | NUR ---
ASSUMED PT CARE AT 1900 WITH NO SIGN OF DISTRESS NOTED IN PT. PT IS ALERT AND ORIENTED. NO FAMILT AT BEDSIDE. FALL PRECAUTION IN PLACE. ASSESSMENT COMPLETED AND CHARTED. SCHEDULED MEDS ADMINISTERED TO PT. PT TOLERATED PO INTAKE. DENIES ANY FURTHER NEEDS AT THIS TIME.
[2019-07-10 06:33] LABS: ALBUMIN 2.4 g/dL (3.4-5.0); CALCIUM 8.3 mg/dL (8.5-10.1); CREATININE 1.1 mg/dL (0.7-1.3); PHOSPHORUS 2.3 mg/dL (2.5-4.9); POTASSIUM 3.2 mmol/L (3.5-5.1)
[2019-07-10 06:36] LABS: INR 1.3; PROTIME 13.7 Seconds (9.3-11.4)
[2019-07-10 07:50] VITALS: BP 132/77
[2019-07-10] MEDS ORDERED: COUMADIN 1MG TAB1 M1 PO (09:32)
[2019-07-10 11:35] VITALS: BP 132/77
--- NOTE | 2019-07-10 12:42 | NUR ---
ASSUMED CARE AT SHIFT CHANGE, ALERT AND ORIENTED X4. K+ AT 3.2 REPLACED WITH 20MEQ. DISCHARGE AND MEDICATIONS INSTRUCTIONS GIVEN TO PATIENT AND HIS DAUGHTER AND THEY VERBALIZED UNDERSTANG.
== END 2019-07-10 13:06 | disposition home or self-care (01) | DRG 640 ==
LOC: ER 18:19 → EROBS 20:01 → 2N 20:01
PROVIDERS: Emergency Medicine; Internal Medicine Cardiovascular Disease; Nurse Practitioner Family; ADMIT Hospitalist
DX: E86.0 Dehydration (principal); N17.0 Acute kidney failure with tubular necrosis; I50.9 Heart failure, unspecified; I11.0 Hypertensive heart disease with heart failure; E87.6 Hypokalemia; R41.0 Disorientation, unspecified; I95.9 Hypotension, unspecified; I25.10 Atherosclerotic heart disease of native coronary artery without angina pectoris; I48.0 Paroxysmal atrial fibrillation; G89.29 Other chronic pain; M54.9 Dorsalgia, unspecified; E78.00 Pure hypercholesterolemia, unspecified; M48.00 Spinal stenosis, site unspecified; E78.5 Hyperlipidemia, unspecified; N40.0 Benign prostatic hyperplasia without lower urinary tract symptoms; M10.9 Gout, unspecified; E03.9 Hypothyroidism, unspecified; R19.7 Diarrhea, unspecified; I25.2 Old myocardial infarction; Z79.01 Long term (current) use of anticoagulants; Z79.82 Long term (current) use of aspirin; Z79.899 Other long term (current) drug therapy; Z95.1 Presence of aortocoronary bypass graft; Z82.49 Family history of ischemic heart disease and other diseases of the circulatory system; Z83.3 Family history of diabetes mellitus; Z82.3 Family history of stroke
CPT/HCPCS: 10081

== ENCOUNTER 2019-09-16 09:27 | Emergency (ER) | payer OTHER ==
[~2019-09-16] VITALS: Ht 177.8 cm; Wt 95.3 kg
[2019-09-16 10:41] LABS: HEMATOCRIT 40.1 % (42.0-52.0); HEMOGLOBIN 12.9 gm/dL (14.0-18.0); MCH 29.7 pg (26.0-34.0); MCHC 32.1 g/dL (28.0-37.0); MCV 92.5 fL (80.0-100.0); PLATELET COUNT 172 thou/uL (150-400); RBC 4.33 mil/uL (4.50-6.00); RDW 17.8 % (10.5-14.5); WBC 8.3 thou/uL (4.0-11.0)
[2019-09-16 10:43] LABS: CREATININE 1.5 mg/dL (0.7-1.3); POTASSIUM 3.2 mmol/L (3.5-5.1)
[2019-09-16 10:50] LABS: ALBUMIN 3.4 g/dL (3.4-5.0); TOTAL BILIRUBIN 0.9 mg/dL (<0.1-1.0); TOTAL PROTEIN 7.4 g/dL (6.4-8.2)
[2019-09-16 11:35] LABS: ABSOLUTE NEUTROPHILS 4.4 thou/uL (1.4-8.2); PLATELET ESTIMATE NORMAL
[2019-09-16 12:45] VITALS: BP 133/79
== END 2019-09-16 12:46 | disposition home or self-care (01) ==
LOC: ER 09:27
PROVIDERS: Emergency Medicine
DX: R19.7 Diarrhea, unspecified (principal); R11.10 Vomiting, unspecified; N40.0 Benign prostatic hyperplasia without lower urinary tract symptoms; M10.9 Gout, unspecified; I11.0 Hypertensive heart disease with heart failure; I50.9 Heart failure, unspecified

== ENCOUNTER → 2019-10-24 | Outpatient (CLI) | payer OTHER ==
[~2019-10-24] VITALS: Ht 170.2 cm; Wt 90.7 kg
[2019-10-24 13:14] LABS: INR 1.2; PROTIME 12.8 Seconds (9.3-11.4)
[2019-10-24 13:52] VITALS: BP 124/75
--- NOTE | 2019-10-24 13:54 | NUR ---
Document wound assessment on appropriate Wound Pressure, Monitor intervention!
--- NOTE | 2019-10-24 13:54 | NUR ---
Pain Clinic Assessment: 1. History of Osteoarthritis: BACK History of Rheumatoid Arthritis: NO 2. Height: 5 ft. 7 in. 170.2 cm. Weight: 200.0 lb. oz. 90.720 kg. Patient's BMI: 31.3 3. Vital Signs: BP: 124/75 Pulse: 80 Resp: 18 Temp: 02 Sat: 100 ECG Mon: 4. Pain Intensity: 5 5. Fall Risk: Dizziness: Needs help standing or walking: Fallen in the last 3 months: Fall risk comments: 6. Patient on Blood Thinner: Warfarin (Coumadin) 7. History of Hypertension: Y 8. Opioid Therapy greater than 6 weeks: N Opiate Contract Signed: 9. Risk Assessment Tool Provided: LOW 10. Functional Assessment Tool: 11. Recreational Drug Use: Never Drug Type: Tobacco Use: Never Smoker Tobacco Type: Amount or Packs/day: How Many Years: Alcohol Use: Past use Frequency: Quant:
--- NOTE | 2019-11-07 12:20 | HPC ---
[facility] [address] [place] [address] PAIN MANAGEMENT CONSULTATION Name: JO NUNEZ Lula [facility] [id number] Admission: 10/24/19 Attend Phys: Jj Weber MD Discharge: Date of : 47 Report #: [id number] THIS REPORT FOR: //name// CC: Liu Weber DATE OF SERVICE: 10/24/2019 SUBJECTIVE: The patient is in the clinic today in followup for an epidural blood patch requested by Dr. Liu Monreal. He has chronic back pain with post-laminectomy fusion discomfort. Dr. Monreal placed an intrathecal pump and he has had a persistent positional headache since the placement. We are hopeful that we may be able to provide some permanent and lasting relief with an epidural blood patch. He was scheduled first 2-3 weeks ago and had to cancel. He is now back saying he has not had any benefit from the additional time. Pain is frontal and occipital, and he has been treating it by taking a couple of ibuprofen and going and lying down. MEDICATIONS: Reviewed and reconciled. Aspirin, metoprolol, Zetia, allopurinol, levothyroxine, multivitamins and atorvastatin. He is on Coumadin 1 mg daily and discontinued it for 5 days in anticipation of today's treatment. His INR is 1.2. ALLERGIES: None. PAST MEDICAL HISTORY: Remarkable for congestive heart failure, hypertension, history of CT with ruptured mitral valve. He has had spinal surgery on a couple of occasions, including laminectomy in 2017 and then a second surgery in 2018. Dr. Monreal placed an intrathecal pump this year, again resulting in a positional headache. REVIEW OF SYSTEMS: Complains of pain in his joints, easy bruising with his Coumadin. He is asc-yurzivq-nsszzmxoz type 2 diabetic. PQRS: 1. Denies arthritis. 2. BMI 31.3. 3. Blood pressure 124/75, heart rate 80, respirations 18. 4. Pain intensity 5/10. 5. He has fallen once in the last 3 months. He would be considered a fall risk due to his headaches and his age. 6. His Coumadin was discontinued for 5 days with an INR of 1.2. 7. History of hypertension, under treatment. All medications were reviewed and reconciled. [address] [address] PAIN MANAGEMENT CONSULTATION Name: ENRIQUEJO Lula Room #: REG [facility] Fany.#: [id number] Admission: 10/24/19 Attend Phys: Jj Weber MD Discharge: Date of : 47 Report #: [id number] 8. No opioids. 9. Denies use of tobacco, recreational drugs and alcohol. PHYSICAL EXAMINATION: GENERAL: He is a pleasant gentleman, alert and oriented. VITAL SIGNS: Blood pressure 124/75, heart rate 80. He moves independently from sitting to standing position. His gait is a bit unsteady, but he does not need a walker or a cane. CHEST: Clear. CARDIAC: Rhythm is regular today. He has intermittent atrial fibrillation. ABDOMEN: Soft. MUSCULOSKELETAL: Examination of the spine reveals 2 scars, 1 over the L5-S1 region and 1 higher for pump placement. Tenderness across the scar is noted. IMPRESSION: Post-dural puncture headache. This occurs on occasion if there have been multiple punctures required to place the intrathecal catheter. PROCEDURE: Blood patch and he is anxious to proceed hoping for some benefit and treatment. PROCEDURE: After informed consent, he was taken to the fluoroscopic suite, placed prone, skin prepped with ChloraPrep. Skin was anesthetized over the L3-L4 interspace. A 20-gauge Tuohy epidural needle advanced into the epidural space with loss of resistance. There was no blood, nor CSF aspirated. I injected Omnipaque just to confirm that we were in the epidural space. The needle was then left in place with a stylet. I then withdrew using sterile technique, 16 mL of autologous blood from an IV that had been placed prior to the procedure while he was in the supine position. I was unable to identify a vein with him lying prone. The IV tubing was prepped, and I was using sterile gloves and a syringe. I had to withdraw the blood slowly and carefully. The blood was then injected slowly through the needle and the needle removed. He was kept in the supine position in the recovery room for over 1 hour before being allowed to get up and move. He had a little bit of discomfort into his legs, which is normal, but was able to ambulate and be discharged independently. Followup visit is planned as needed. I do not intend to see him back unless we decide to repeat the injection if the pain is not alleviated. <ELECTRONICALLY SIGNED> By: Jj Weber MD 11/07/19 1220 1755 0135 Jj Weber MD /nt
== END | disposition home or self-care (01) ==
LOC: PAIN 09-12 06:59
PROVIDERS: Anesthesiology Pain Medicine
DX: G97.1 Other reaction to spinal and lumbar puncture (principal); G89.29 Other chronic pain; M96.1 Postlaminectomy syndrome, not elsewhere classified; I11.0 Hypertensive heart disease with heart failure; I50.9 Heart failure, unspecified; E11.9 Type 2 diabetes mellitus without complications; I25.2 Old myocardial infarction; M10.9 Gout, unspecified; Z98.890 Other specified postprocedural states; Z79.899 Other long term (current) drug therapy; Z79.01 Long term (current) use of anticoagulants; Z79.82 Long term (current) use of aspirin

== ENCOUNTER → 2020-01-10 | Outpatient (CLI) | payer OTHER | LOC: SJCVC 10:27 | DX: I48.91 Unspecified atrial fibrillation (principal); R94.31 Abnormal electrocardiogram [ECG] [EKG]; I11.0 Hypertensive heart disease with heart failure; I50.9 Heart failure, unspecified; I25.810 Atherosclerosis of coronary artery bypass graft(s) without angina pectoris; E78.00 Pure hypercholesterolemia, unspecified; R60.9 Edema, unspecified; I25.2 Old myocardial infarction; Z95.1 Presence of aortocoronary bypass graft; Z79.82 Long term (current) use of aspirin; Z79.899 Other long term (current) drug therapy ==

== ENCOUNTER → 2020-07-02 | Outpatient (CLI) | payer OTHER ==
[~2020-07-02] VITALS: Ht 182.9 cm; Wt 104.7 kg
[2020-07-02 14:25] LABS: INR 1.5; PROTIME 15.4 Seconds (9.3-11.4)
[2020-07-02 14:26] VITALS: BP 142/85
--- NOTE | 2020-07-02 14:41 | NUR ---
Pain Clinic Assessment: 1. History of Osteoarthritis: BACK neck History of Rheumatoid Arthritis: NO 2. Height: 6 ft. 0 in. 182.9 cm. Weight: 230.8 lb. oz. 104.690 kg. Patient's BMI: 31.3 3. Vital Signs: BP: 142/85 Pulse: 69 Resp: 20 Temp: 02 Sat: 100 ECG Mon: 4. Pain Intensity: 6-7 5. Fall Risk: Dizziness: N Needs help standing or walking: N Fallen in the last 3 months: N Fall risk comments: 6. Patient on Blood Thinner: Warfarin (Coumadin) 7. History of Hypertension: Y 8. Opioid Therapy greater than 6 weeks: N Opiate Contract Signed: 9. Risk Assessment Tool Provided: LOW 10. Functional Assessment Tool: 11. Recreational Drug Use: Never Drug Type: Tobacco Use: Never Smoker Tobacco Type: Amount or Packs/day: How Many Years: Alcohol Use: Past use Frequency: Quant:
--- NOTE | 2020-07-05 11:44 | HPC ---
[facility] [address] [place] [address] PAIN MANAGEMENT CONSULTATION Name: JO NUNEZ Room #: REG [facility] Obdulia.#: [id number] Admission: 07/02/20 Attend Phys: Jj Weber MD Discharge: Date of : 47 Report #: [id number] THIS REPORT FOR: cc: Chasity Sandoval MD,Chasity Weber,Jj Melton MD ~ CC: hCasity Weber DATE OF SERVICE: 07/02/2020 CHIEF COMPLAINT: Low back pain. HISTORY OF PRESENT ILLNESS: The patient is a gentleman I saw on October of last year for blood patch. He received nearly immediate response and his postdural puncture headache went away. He had had a dural puncture after an intrathecal pump trial. He returns to the pain clinic today complaining of pain in his low back above the level of his fusion. He has an L5-S1 spondylolisthesis. Dr. Monreal fused L5 and S1. He still has some mobility and probable hypermobility in the L4-L5, L3-L4 and L2-L3 joints. PQRS: He denies any arthritis. He does have spondylosis of the lumbar spine. BMI is 31.3, blood pressure 142/85, heart rate 69, respirations 20, O2 sat 100. Pain intensity 6-7/10 across the low back without radiation. He has not fallen, but he is on blood thinner, Coumadin for history of atrial fibrillation. History of hypertension as well. He takes no opioids. His risk assessment tool is low. Denies tobacco and alcohol. Musculoskeletal reveals tenderness across the low back. Pain with back extension. Most of the pain is located above the lower scar from his fusion. IMPRESSION: Lumbar spondylosis with hypermobility above the level of L5-S1 fusion. PROCEDURE: Bilateral L2-3, L3-4, L4-5 facet injections with triamcinolone and bupivacaine. Diagnostic and therapeutic benefits from the injection have been observed in many patients. The diagnostic information may also be followed up with medial branch nerve blocks followed by radiofrequency and we discussed that briefly today. He is interested in that therapy. PROCEDURE: After informed consent, he was taken to the fluoroscopic suite, placed prone, skin prepped with ChloraPrep. Skin anesthetized first on the [address] [address] PAIN MANAGEMENT CONSULTATION Name: ENRIQUEJO Lula Room #: REG [facility] Rivera#: [id number] Admission: 07/02/20 Attend Phys: jJ Weber MD Discharge: Date of : 47 Report #: [id number]. I anesthetized the skin and then advanced 25-gauge 3-1/2 inch spinal needles gently down to the posterior inferior recess of the facet joint of L5-S1, L4-L5 and L3-L4. After negative aspiration, each joint injected with 1 mL of 0.5% bupivacaine mixed with 10 mg of triamcinolone. Holly were then removed. C-arm was moved to identify the joints on the left. Mirror image injection was then performed injecting the lower 3 joints L2-L3, L3-L4, and L4-L5. Same solution utilized 0.5% bupivacaine and 10 mg of triamcinolone of each joint, tolerated the procedure well. His pain score dropped from a 6 to an 8 at discharge and a followup visit is scheduled on an as needed basis. If he gets long duration of these injections, I would simply repeat them shorter duration, move forward with radiofrequency. <ELECTRONICALLY SIGNED> By: Jj Weber MD 07/05/20 1144 1622 1658 Jj Weber MD /nt
== END | disposition home or self-care (01) ==
LOC: PAIN 07:01
PROVIDERS: ATTEND Anesthesiology Pain Medicine
DX: M47.816 Spondylosis without myelopathy or radiculopathy, lumbar region (principal); M54.5 Low back pain; I11.0 Hypertensive heart disease with heart failure; I50.9 Heart failure, unspecified; I48.91 Unspecified atrial fibrillation; Z98.890 Other specified postprocedural states; Z79.899 Other long term (current) drug therapy; Z79.01 Long term (current) use of anticoagulants

== ENCOUNTER → 2020-07-26 | Outpatient (CLI) | payer OTHER | LOC: SJCVCIMAG 07-12 07:27 | PROVIDERS: ATTEND Internal Medicine Cardiovascular Disease | DX: I07.1 Rheumatic tricuspid insufficiency (principal); R94.31 Abnormal electrocardiogram [ECG] [EKG]; I44.5 Left posterior fascicular block; I25.10 Atherosclerotic heart disease of native coronary artery without angina pectoris; E78.00 Pure hypercholesterolemia, unspecified; I11.0 Hypertensive heart disease with heart failure; I50.9 Heart failure, unspecified; Z95.1 Presence of aortocoronary bypass graft; Z79.899 Other long term (current) drug therapy ==

== ENCOUNTER → 2020-11-05 | Outpatient (CLI) | payer OTHER ==
[~2020-11-05] VITALS: Ht 170.2 cm; Wt 104.3 kg
[2020-11-05 11:17] VITALS: BP 113/78
--- NOTE | 2020-11-05 11:26 | NUR ---
Pain Clinic Assessment: 1. History of Osteoarthritis: BACK neck History of Rheumatoid Arthritis: NO 2. Height: 5 ft. 7 in. 170.2 cm. Weight: 230.0 lb. oz. 104.328 kg. Patient's BMI: 36.0 3. Vital Signs: BP: 113/78 Pulse: 81 Resp: 16 Temp: 02 Sat: 96 ECG Mon: 4. Pain Intensity: 6 5. Fall Risk: Dizziness: N Needs help standing or walking: N Fallen in the last 3 months: N Fall risk comments: 6. Patient on Blood Thinner: Warfarin (Coumadin) 7. History of Hypertension: Y 8. Opioid Therapy greater than 6 weeks: N Opiate Contract Signed: 9. Risk Assessment Tool Provided: KHALIDA 10. Functional Assessment Tool: 11. Recreational Drug Use: Never Drug Type: Tobacco Use: Never Smoker Tobacco Type: Amount or Packs/day: How Many Years: Alcohol Use: Past use Frequency: Quant:
== END | disposition home or self-care (01) ==
LOC: PAIN 10-25 08:48
PROVIDERS: ATTEND Anesthesiology Pain Medicine
DX: M54.81 Occipital neuralgia (principal); I11.0 Hypertensive heart disease with heart failure; I50.9 Heart failure, unspecified; M19.90 Unspecified osteoarthritis, unspecified site; Z98.890 Other specified postprocedural states; Z79.899 Other long term (current) drug therapy; Z79.01 Long term (current) use of anticoagulants

== ENCOUNTER → 2021-01-30 | Outpatient (CLI) | payer OTHER | LOC: SJCVCIMAG 08:02 | PROVIDERS: ATTEND Internal Medicine Cardiovascular Disease | DX: I49.3 Ventricular premature depolarization (principal); R06.00 Dyspnea, unspecified; I25.10 Atherosclerotic heart disease of native coronary artery without angina pectoris; I48.91 Unspecified atrial fibrillation; E78.00 Pure hypercholesterolemia, unspecified; R60.9 Edema, unspecified; I11.0 Hypertensive heart disease with heart failure; I50.9 Heart failure, unspecified; R60.0 Localized edema; E03.9 Hypothyroidism, unspecified; I25.2 Old myocardial infarction; Z79.899 Other long term (current) drug therapy; Z95.1 Presence of aortocoronary bypass graft; Z79.01 Long term (current) use of anticoagulants; Z79.82 Long term (current) use of aspirin; E78.5 Hyperlipidemia, unspecified ==

== ENCOUNTER → 2021-02-06 | Outpatient (CLI) | payer OTHER | LOC: SJCVC 08:31 | PROVIDERS: ATTEND Internal Medicine Cardiovascular Disease | DX: I11.0 Hypertensive heart disease with heart failure (principal); I50.9 Heart failure, unspecified; I48.91 Unspecified atrial fibrillation; E03.9 Hypothyroidism, unspecified; E78.00 Pure hypercholesterolemia, unspecified; I25.10 Atherosclerotic heart disease of native coronary artery without angina pectoris; Z79.82 Long term (current) use of aspirin; Z79.899 Other long term (current) drug therapy ==

== ENCOUNTER → 2021-02-13 | Outpatient (CLI) | payer OTHER | LOC: SJCVC 09:46 | PROVIDERS: ATTEND Internal Medicine Cardiovascular Disease | DX: R94.31 Abnormal electrocardiogram [ECG] [EKG] (principal); I25.10 Atherosclerotic heart disease of native coronary artery without angina pectoris; I10 Essential (primary) hypertension; I48.91 Unspecified atrial fibrillation; R60.0 Localized edema; E78.00 Pure hypercholesterolemia, unspecified; M54.5 Low back pain; G89.29 Other chronic pain; E03.9 Hypothyroidism, unspecified; I25.2 Old myocardial infarction; Z95.1 Presence of aortocoronary bypass graft; Z79.899 Other long term (current) drug therapy; Z79.82 Long term (current) use of aspirin ==

== ENCOUNTER → 2021-03-13 | Outpatient (CLI) | payer OTHER | LOC: SJCVC 08:37 | PROVIDERS: ATTEND Internal Medicine Cardiovascular Disease | DX: I25.10 Atherosclerotic heart disease of native coronary artery without angina pectoris (principal); E03.9 Hypothyroidism, unspecified; I48.91 Unspecified atrial fibrillation; I10 Essential (primary) hypertension; I25.2 Old myocardial infarction; E78.00 Pure hypercholesterolemia, unspecified; E78.5 Hyperlipidemia, unspecified; Z98.890 Other specified postprocedural states; Z79.82 Long term (current) use of aspirin; Z79.899 Other long term (current) drug therapy ==

== ENCOUNTER → 2021-06-18 | Outpatient (CLI) | payer OTHER | LOC: SJCVC 10:08 | PROVIDERS: ATTEND Internal Medicine Cardiovascular Disease | DX: R94.31 Abnormal electrocardiogram [ECG] [EKG] (principal); I48.91 Unspecified atrial fibrillation; I25.10 Atherosclerotic heart disease of native coronary artery without angina pectoris; R60.9 Edema, unspecified; E78.00 Pure hypercholesterolemia, unspecified; G89.29 Other chronic pain; I11.0 Hypertensive heart disease with heart failure; I50.9 Heart failure, unspecified; E03.9 Hypothyroidism, unspecified; I25.2 Old myocardial infarction; Z95.1 Presence of aortocoronary bypass graft; Z98.890 Other specified postprocedural states; Z79.82 Long term (current) use of aspirin; Z79.899 Other long term (current) drug therapy; Z82.49 Family history of ischemic heart disease and other diseases of the circulatory system ==

== ENCOUNTER → 2021-07-04 | Outpatient (CLI) | payer OTHER | LOC: SJCVC 11:02 | PROVIDERS: ATTEND Internal Medicine Cardiovascular Disease | DX: R60.9 Edema, unspecified (principal); E78.00 Pure hypercholesterolemia, unspecified; E03.9 Hypothyroidism, unspecified; I25.2 Old myocardial infarction; I25.10 Atherosclerotic heart disease of native coronary artery without angina pectoris; I50.9 Heart failure, unspecified; I11.0 Hypertensive heart disease with heart failure; Z95.5 Presence of coronary angioplasty implant and graft; Z98.890 Other specified postprocedural states ==

== ENCOUNTER → 2021-07-17 | Outpatient (CLI) | payer OTHER | LOC: SJCVC 11:21 | PROVIDERS: ATTEND Internal Medicine Cardiovascular Disease | DX: R94.31 Abnormal electrocardiogram [ECG] [EKG] (principal); I25.10 Atherosclerotic heart disease of native coronary artery without angina pectoris; I48.91 Unspecified atrial fibrillation; E78.00 Pure hypercholesterolemia, unspecified; I11.0 Hypertensive heart disease with heart failure; I50.9 Heart failure, unspecified; E03.9 Hypothyroidism, unspecified; R60.9 Edema, unspecified; Z95.1 Presence of aortocoronary bypass graft; Z79.82 Long term (current) use of aspirin; Z79.899 Other long term (current) drug therapy ==

== ENCOUNTER → 2021-09-16 | Outpatient (CLI) | payer OTHER | LOC: SJCVCIMAG 11:47 | PROVIDERS: ATTEND Internal Medicine Cardiovascular Disease | DX: R94.31 Abnormal electrocardiogram [ECG] [EKG] (principal); I77.1 Stricture of artery; I11.0 Hypertensive heart disease with heart failure; I50.9 Heart failure, unspecified; I25.10 Atherosclerotic heart disease of native coronary artery without angina pectoris; I48.91 Unspecified atrial fibrillation; R60.9 Edema, unspecified; E03.9 Hypothyroidism, unspecified; E78.00 Pure hypercholesterolemia, unspecified; L97.919 Non-pressure chronic ulcer of unspecified part of right lower leg with unspecified severity; L97.928 Non-pressure chronic ulcer of unspecified part of left lower leg with other specified severity; Z82.49 Family history of ischemic heart disease and other diseases of the circulatory system; Z79.82 Long term (current) use of aspirin; Z79.899 Other long term (current) drug therapy ==

== ENCOUNTER → 2021-09-25 | Outpatient (CLI) | payer OTHER | LOC: HYPER 09:16 | PROVIDERS: ATTEND Emergency Medicine | DX: L97.812 Non-pressure chronic ulcer of other part of right lower leg with fat layer exposed (principal); L97.822 Non-pressure chronic ulcer of other part of left lower leg with fat layer exposed; R60.0 Localized edema; E78.00 Pure hypercholesterolemia, unspecified; E03.9 Hypothyroidism, unspecified; I87.2 Venous insufficiency (chronic) (peripheral); I48.91 Unspecified atrial fibrillation; I25.10 Atherosclerotic heart disease of native coronary artery without angina pectoris; I11.0 Hypertensive heart disease with heart failure; M48.00 Spinal stenosis, site unspecified; I50.9 Heart failure, unspecified; Z79.82 Long term (current) use of aspirin; Z79.01 Long term (current) use of anticoagulants; Z95.1 Presence of aortocoronary bypass graft; Z98.41 Cataract extraction status, right eye; Z98.42 Cataract extraction status, left eye ==

== ENCOUNTER → 2021-10-09 | Outpatient (CLI) | payer OTHER | LOC: SJCVC 11:11 | PROVIDERS: ATTEND Internal Medicine Cardiovascular Disease | DX: R94.31 Abnormal electrocardiogram [ECG] [EKG] (principal); I25.10 Atherosclerotic heart disease of native coronary artery without angina pectoris; I10 Essential (primary) hypertension; I48.91 Unspecified atrial fibrillation; E78.00 Pure hypercholesterolemia, unspecified; E03.9 Hypothyroidism, unspecified; R60.9 Edema, unspecified; Z82.49 Family history of ischemic heart disease and other diseases of the circulatory system; Z79.82 Long term (current) use of aspirin; Z79.899 Other long term (current) drug therapy ==

== ENCOUNTER → 2021-10-09 | Outpatient (CLI) | payer OTHER | LOC: HYPER 07:56 | PROVIDERS: ATTEND Emergency Medicine | DX: L97.812 Non-pressure chronic ulcer of other part of right lower leg with fat layer exposed (principal); L97.822 Non-pressure chronic ulcer of other part of left lower leg with fat layer exposed; R60.0 Localized edema; E78.00 Pure hypercholesterolemia, unspecified; E03.9 Hypothyroidism, unspecified; E66.9 Obesity, unspecified; I87.2 Venous insufficiency (chronic) (peripheral); I48.91 Unspecified atrial fibrillation; I25.10 Atherosclerotic heart disease of native coronary artery without angina pectoris; I11.0 Hypertensive heart disease with heart failure; I50.9 Heart failure, unspecified; K21.9 Gastro-esophageal reflux disease without esophagitis; M48.00 Spinal stenosis, site unspecified; Z79.82 Long term (current) use of aspirin; Z79.01 Long term (current) use of anticoagulants; Z95.1 Presence of aortocoronary bypass graft; Z98.41 Cataract extraction status, right eye; Z68.29 Body mass index [BMI] 29.0-29.9, adult; Z98.42 Cataract extraction status, left eye ==

== ENCOUNTER → 2021-10-24 | Outpatient (CLI) | payer OTHER | LOC: HYPER 08:49 | PROVIDERS: ATTEND Emergency Medicine | DX: L97.812 Non-pressure chronic ulcer of other part of right lower leg with fat layer exposed (principal); R60.0 Localized edema; E78.00 Pure hypercholesterolemia, unspecified; E03.9 Hypothyroidism, unspecified; E66.9 Obesity, unspecified; I87.2 Venous insufficiency (chronic) (peripheral); I48.91 Unspecified atrial fibrillation; I25.10 Atherosclerotic heart disease of native coronary artery without angina pectoris; I11.0 Hypertensive heart disease with heart failure; I50.9 Heart failure, unspecified; K21.9 Gastro-esophageal reflux disease without esophagitis; M48.00 Spinal stenosis, site unspecified; Z79.82 Long term (current) use of aspirin; Z79.01 Long term (current) use of anticoagulants; Z95.1 Presence of aortocoronary bypass graft; Z98.41 Cataract extraction status, right eye; Z68.29 Body mass index [BMI] 29.0-29.9, adult; Z98.42 Cataract extraction status, left eye ==

== ENCOUNTER → 2021-11-07 | Outpatient (CLI) | payer OTHER | LOC: HYPER 08:21 | PROVIDERS: ATTEND Emergency Medicine | DX: L97.812 Non-pressure chronic ulcer of other part of right lower leg with fat layer exposed (principal); L84 Corns and callosities; R60.0 Localized edema; E78.00 Pure hypercholesterolemia, unspecified; E03.9 Hypothyroidism, unspecified; E66.9 Obesity, unspecified; I87.2 Venous insufficiency (chronic) (peripheral); I48.91 Unspecified atrial fibrillation; I25.10 Atherosclerotic heart disease of native coronary artery without angina pectoris; I11.0 Hypertensive heart disease with heart failure; I50.9 Heart failure, unspecified; K21.9 Gastro-esophageal reflux disease without esophagitis; M48.00 Spinal stenosis, site unspecified; Z79.82 Long term (current) use of aspirin; Z79.01 Long term (current) use of anticoagulants; Z95.1 Presence of aortocoronary bypass graft; Z98.41 Cataract extraction status, right eye; Z68.29 Body mass index [BMI] 29.0-29.9, adult; Z98.42 Cataract extraction status, left eye ==

== ENCOUNTER → 2021-12-10 | Outpatient (CLI) | payer BC | LOC: SJCVC 10:17 | PROVIDERS: ATTEND Internal Medicine Cardiovascular Disease | DX: R94.31 Abnormal electrocardiogram [ECG] [EKG] (principal); I44.5 Left posterior fascicular block; I49.3 Ventricular premature depolarization; I44.0 Atrioventricular block, first degree; I25.10 Atherosclerotic heart disease of native coronary artery without angina pectoris; I48.0 Paroxysmal atrial fibrillation; R60.9 Edema, unspecified; E78.00 Pure hypercholesterolemia, unspecified; I11.0 Hypertensive heart disease with heart failure; I50.9 Heart failure, unspecified; E03.9 Hypothyroidism, unspecified; Z79.82 Long term (current) use of aspirin; Z79.899 Other long term (current) drug therapy; Z82.49 Family history of ischemic heart disease and other diseases of the circulatory system ==

== ENCOUNTER 2022-01-01 08:26 | Inpatient (IN) | payer BC ==
[~2022-01-01] VITALS: Ht 182.9 cm; Wt 130.6 kg
[2022-01-01] VITALS (20 sets, daily range): BP systolic 80–149; BP diastolic 24–121
--- NOTE | 2022-01-01 09:03 | NUR ---
PT SOILED IN STOOL. CHARIS CARE PERFORMED.
[2022-01-01 09:10] LABS: ABSOLUTE NEUTROPHILS 4.4 thou/uL (1.4-8.2); BASOPHILS 0.3 % (0.0-2.0); EOSINOPHILS 1.3 % (0.0-3.0); HEMATOCRIT 38.4 % (42.0-52.0); HEMOGLOBIN 12.2 gm/dL (14.0-18.0); LYMPHOCYTES 9.5 % (24.0-44.0); MCHC 31.7 g/dL (28.0-37.0); MCV 94.4 fL (80.0-100.0); MONOCYTES 0.8 % (1.0-8.0); PLATELET COUNT 209 thou/uL (150-400); POLYS 88.1 % (36.0-66.0); RBC 4.07 mil/uL (4.50-6.00); RDW 17.5 % (10.5-14.5)
[2022-01-01 09:26] LABS: CALCIUM 9.1 mg/dL (8.5-10.1); CREATININE 1.6 mg/dL (0.7-1.3)
[2022-01-01 09:29] LABS: APTT 27.3 Seconds (24.5-32.8); INR 1.25; PROTIME 13.5 Seconds (10.5-12.1)
[2022-01-01 09:39] LABS: TOTAL BILIRUBIN 1.3 mg/dL (0.2-1.0); TOTAL PROTEIN 6.1 g/dL (6.4-8.2)
[2022-01-01 09:49] LABS: URINE BILIRUBIN NEGATIVE (Negative); URINE BLOOD NEGATIVE (Negative); URINE CLARITY CLEAR; URINE COLOR YELLOW; URINE GLUCOSE-RANDOM* NEGATIVE (Negative); URINE KETONES NEGATIVE (Negative); URINE LEUKOCYTES-REFLEX NEGATIVE (Negative); URINE NITRITE-REFLEX NEGATIVE (Negative); URINE PROTEIN (DIPSTICK) NEGATIVE (Negative); URINE UROBILINOGEN 0.2 E.U./dl (0.2-1.0)
--- NOTE | 2022-01-01 11:31 | EKG ---
[place] [address] [facility] [address] [place] [address] ELECTROCARDIOGRAM REPORT Name: JO NUNEZ Room #: 170-1 ADM IN M.R.#: [id number] Admission: 01/01/22 Attend Phys: Seamus Arevalo MD Discharge: Date of : 47 Report #: [id number] [facility] ED Test Date: 2022-01-01 Test Time: 08:40:05 Pat Name: JO NUNEZ Department: Room: 170 Gender: M General Education Instructor: kt : 1945 Requested By: Donato Medina Order Number: [id number] MD: Pako Ramirez Measurements Intervals [place] Rate: 117 P: -4 NV: 94 QRS: 36 QRSD: 117 T: 148 QT: 335 QTc: 468 Interpretive Statements Sinus tachycardia with irregular rate Incomplete left bundle branch block Borderline low voltage, extremity leads Artifact in lead(s) I,II,III,aVR,aVL,aVF Compared to ECG 07/06/2019 19:28:46 Left bundle-branch block now present Sinus rhythm no longer present Intraventricular conduction delay no longer present Electronically Signed On 01-01-2022 11:31:36 POLICE CHIEF by Pako Ramirez [email or web address] <ELECTRONICALLY SIGNED> By: Pako Ramirez MD, [facility] 01/01/22 1131 0840 Pako Ramirez MD, [facility] /EPI
--- NOTE | 2022-01-01 11:39 | NUR ---
VAT CONSULTED FOR CVAD. DISCUSSED BENEFITS AND RISK WITH PT,VERBALIZED UNDERSTANDING. RIJ WAS WIDELY PATENT WITH USG. 6FR TL JACC 25CM INSERTED TO 4CM EXTERNAL WITH BRISK BR. STAT CXR ORDERED. PT TOLERATED WELL
--- NOTE | 2022-01-01 11:45 | NUR ---
RIJ RELEASED FOR IMMEDIATE USE PER PROTOCOL
--- NOTE | 2022-01-01 13:43 | NUR ---
VAT CALLED ABOUT RIJ BLEEDING. DRESSING CHANGED NO ACTIVE BLEEDING NOTED. CXR CONFIRMED PLACEMENT, RELEASED FOR IMMEDIATE USE PER PROTOCOL
--- NOTE | 2022-01-01 15:49 | NUR ---
76-year-old male presents to the ED via EMS ground with complaints of N/V since 0600 today with weakness that progressed for the patient sliding down onto the floor. ID NOW shows positive and the patient has been admitted for: Septic Shock, Cellulitis of the RLE, COVID Positive, A-fib with RVR< HTN, Hypokalemia, Acute on Chronic Renal failure and Nonischemic cardiomyopathy/heart failure. Of Note at 1454 Lactic Acid level of 6.0 and MD notified. ED Triage assessment notes the patient has been vaccinated. The patient currently lives at home with is and daughter. Attempted to reach at number listed of [phone] and number is not in service. Then I did reach daughter Julianne at [phone] . She would call in later and solar project coordination specialist her mother's new phone number. She did confirm that the patient has been fully vaccinated and boosted. Daughter explained that patient normally is able to transfer self but has increased weakness and she and her daughter were unable to get the patient up and that is when they decided to call 911. Re-introduced role of CM and explained that once MD's complete assessments and treatment recommendations that therapy will be introduced to help assist discharge planning. CM will continue to follow progression and work with discharge needs once identified after stabilization of medical condition as CM notes daughter has been with her parents in acute rehab and is open to what discharge options will be with this or other avenues as care progresses. CM will continue to follow.
--- NOTE | 2022-01-01 19:27 | NUR ---
ASSUMED CARE OF PATIENT AT 1500. PT ARRIVES FROM ED ON 2LNC, ON LEVOPHED GTT AND NS IVF. DR HERNANDEZ NOTIFIED OF ARRIVAL, ORDERS IN. TRENDING LACTIC ACIDS. SPOKE VIA PHONE TO DAUGHTER BLADIMIR, GAVE PT CONDITION UPDATE AND CODE.
--- NOTE | 2022-01-01 19:52 | NUR ---
NOTIFIED DR. HERNANDEZ OF ELEVATED LACTIC ACID AND LOW URINE OUTPUT. 1L NS BOLUS ORDERED.
[2022-01-01] MEDS ORDERED: KLOR-CON M2020 MEQ PO (20:47)
[2022-01-01] MEDS ORDERED: LIPITOR40 MG PO (20:48)
[2022-01-01] MEDS ORDERED: COLESTID1 GM PO (20:50)
[2022-01-01] MEDS ORDERED: ASPIRIN EC81 M1 PO (20:52)
[2022-01-01] MEDS ORDERED: ELIQUIS5 MG PO (20:52)
[2022-01-01] MEDS ORDERED: BUDESONIDE EC3 MG PO (20:53)
[2022-01-01] MEDS ORDERED: ALLOPURINOL 10100 M3 PO (20:54)
[2022-01-01] MEDS ORDERED: LEVO-T75 MCG PO (20:55)
[2022-01-01] MEDS ORDERED: KAPSPARGO SPRI100 MG PO (20:55)
[2022-01-02] VITALS (87 sets, daily range): BP systolic 53–148; BP diastolic 24–85
--- NOTE | 2022-01-02 01:29 | NUR ---
Pt with low urine output tonight, despite orders for fluid bolus's, called ID to notify about positive blood cultures. Notified Fritz [employer] of continued elevated lactic acids and low urine output.
[2022-01-02 05:22] LABS: CALCIUM 7.4 mg/dL (8.5-10.1); CREATININE 2.5 mg/dL (0.7-1.3); MAGNESIUM 1.3 mg/dL (1.8-2.4); POTASSIUM 3.7 mmol/L (3.5-5.1)
[2022-01-02 05:24] LABS: ABSOLUTE NEUTROPHILS 17.5 thou/uL (1.4-8.2); BASOPHILS 0.3 % (0.0-2.0); HEMATOCRIT 36.4 % (42.0-52.0); HEMOGLOBIN 11.3 gm/dL (14.0-18.0); LYMPHOCYTES 1.5 % (24.0-44.0); MCH 29.7 pg (26.0-34.0); MCHC 31.1 g/dL (28.0-37.0); MCV 95.5 fL (80.0-100.0); MONOCYTES 2.4 % (1.0-8.0); PLATELET COUNT 194 thou/uL (150-400); POLYS 95.8 % (36.0-66.0); RBC 3.81 mil/uL (4.50-6.00)
[2022-01-02 05:40] LABS: WBC 18.3 thou/uL (4.0-11.0)
--- NOTE | 2022-01-02 08:08 | NUR ---
NOTIFIED DR HERNANDEZ OF ELEVATED WBC, LOW MAG AND ELEVATED CREATININE LEVELS. LACTIC ACID PENDING. NO NEW ORDERS AT THIS TIME.
--- NOTE | 2022-01-02 09:40 | NUR ---
NOTIFIED DR HERNANDEZ OF LACTIC ACID 6. NEW ORDERS WRITEN FOR MAG REPLACEMENT AND REPEAT MAG LAB. AWAITING ANY NEW ORDERS.
--- NOTE | 2022-01-02 11:24 | HC ---
[facility] [place] [address] CONSULTATION Name: JO NUNEZ Room #: 239-P ADM IN .R.#: [id number] Admission: 01/01/22 Attend Phys: Seamus Arevalo MD Discharge: Date of : 47 Report #: [id number] THIS REPORT FOR: cc: Chasity Sandoval MD,Michael Hays MD, MD ~ DATE OF SERVICE: 01/01/2022 INFECTIOUS DISEASE CONSULTATION ATTENDING PHYSICIAN: Dr. Arevalo REASON FOR EVALUATION: Septic shock, COVID positive. HISTORY OF PRESENT ILLNESS: Chart reviewed. The patient examined. This is a 76-year-old gentleman with known history of heart disease, previous mitral valve surgery, also has chronic pain syndrome, has an implantable morphine pump, left lower quadrant, who presented in extremis with weakness, nausea and vomiting, has been a fairly abbreviated pattern over the course of less than a day. There is some diarrhea as well. He was noted to be quite hemodynamically unstable. He has been given significant amounts of fluid resuscitation to maintain blood pressure, also currently on pressor support with norepinephrine. Has been initiated on low dose supplemental oxygen therapy as well at 2 L per nasal cannula. He primarily complains of severe pain involving both his back and his neck. He notes this has been an ongoing issue, although it has been worse during this illness. It is not clearly he has had significant fevers. Admits some chills. On questioning, he notes he has been somewhat limited in activity due to his chronic back pain. Did have recent dental visit. He was instructed to come back. He had some issues with poor teeth. He does have pets including dogs, which he has had for extended period of time. No recent travel. No dietary indiscretion. Again, he has not been active outside. He was evaluated. Chest x-ray was unremarkable. Coronavirus testing was positive as noted above. Initial CBC was fairly unremarkable. Mild elevation of his creatinine to 1.6. LFTs were unremarkable. Lactic acid 4.9. Procalcitonin 7.92. Repeat lactic acid went to 6.9. Blood cultures have been collected and are in progress. Urinalysis was fairly unremarkable. Empirically started on antibiotic therapy with Zosyn and vancomycin. ALLERGIES: None known. CURRENT MEDICATIONS: Include allopurinol, levothyroxine, vancomycin, apixaban, atorvastatin, ezetimibe, norepinephrine. PAST MEDICAL HISTORY: As described above. He has history of known coronary artery disease with cardiomyopathy, congestive heart failure, hypertension, previous mitral valve surgery with ring annuloplasty, chronic pain syndrome with [address] [address] CONSULTATION Name: JO NUNEZ Room #: 239-P [facility] IN ..#: [id number] Admission: 01/01/22 Attend Phys: Seamus Arevalo MD Discharge: Date of : 47 Report #: [id number] indwelling pain pump. SOCIAL HISTORY: He is , nonsmoker. No ethanol, no illicit drug use. FAMILY HISTORY: Noncontributory. REVIEW OF SYSTEMS: As above. PHYSICAL EXAMINATION: GENERAL: He is in moderate to marked distress. He is fairly lucid, attributes to the back pain. He is somewhat chronically ill-appearing and undernourished. VITAL SIGNS: Temperature 99.9, pulse 97, respirations 18, blood pressure is 80/35. SKIN: Warm, dry. HEENT: Normocephalic. Extraocular muscles intact. NECK: Supple. LUNGS: Diminished breath sounds. HEART: Borderline tachycardic, perhaps a soft systolic murmur. ABDOMEN: Mildly distended, somewhat firm. No overt peritoneal signs. GENITOURINARY AND RECTAL: Deferred. LABORATORY DATA: As described above. Most recent lactic acid 6.9. CRP of 3.6. Procalcitonin 7.92. Urinalysis unremarkable. Coronavirus testing was positive. ASSESSMENT AND PLAN: Septic shock in the setting of a positive coronavirus testing. I doubt this was driving it, otherwise it is not entirely clear as to etiology as no evidence of focus of pyogenic infection at this point. I would be concerned about an endovascular infection such as endocarditis. The history of underlying valve disease, recent dental procedure put him at risk. We will check echo and await culture results. At this point, although he is severely ill, not clearly evident that he is deteriorating. Continue to monitor expectantly. We will do additional diagnostic testing to try to sort this out. Because of this reason, we will add doxycycline as well. Possible atypical issue, although cannot exclude a zoonosis. Thank you, we will follow. <ELECTRONICALLY SIGNED> By: Michael Parsons MD 01/02/22 1124 1352 56 Michael Parsons MD /nt
--- NOTE | 2022-01-02 11:40 | NUR ---
NOTIFIED DR. HERNANDEZ OF CONTINUED ELEVATED LACTIC ACID RESULT. NEW ORDERS FOR 1L NS BOLUS. PT C/O PERSISTENT BACK/NECK PAIN. HOME METHACARBAMOL FORMULARY NOT AVAILABLE, FLEXERIL ORDERED INSTEAD. WOUND CARE CONSULTED FOR R GUERRA AND L ELBOW WOUNDS.
--- NOTE | 2022-01-02 12:44 | EKG ---
[place] [address] [facility] [place] [address] ELECTROCARDIOGRAM REPORT Name: JO NUNEZ Room #: 239-P ADM IN M.R.#: [id number] Admission: 01/01/22 Attend Phys: Seamus Arevalo MD Discharge: Date of : 47 Report #: [id number] [facility] Test Date: 2022-01-02 Test Time: 09:18:34 Pat Name: JO NUNEZ Department: Room: 239 P Gender: M Supervisor Telephone Information: OZZIE : 1945 Requested By: Sandro Maurice Order Number: [id number] MD: Santy Mayo Measurements Intervals [place] Rate: 110 P: WV: QRS: 72 QRSD: 97 T: 86 QT: 296 QTc: 401 Interpretive Statements Atrial fibrillation Ventricular premature complex Low voltage, extremity leads Compared to ECG 01/01/2022 08:40:05 Ventricular premature complex(es) now present Sinus tachycardia no longer present Left bundle-branch block no longer present Electronically Signed On 01-02-2022 12:44:16 DIRECTOR OF EVENT MARKETING by Santy Mayo [email or web address] <ELECTRONICALLY SIGNED> By: Santy Mayo MD 01/02/22 1244 7 7 Santy Mayo MD /JARON
--- NOTE | 2022-01-02 12:57 | NUR ---
FAMILY DROPPED OF SOME PT BELONGINGS THIS AFTERNOON: CELL PHONE, PHONE BULL RIDER, SHOES, JACKET, SHIRT, PANTS AND SOCKS.
--- NOTE | 2022-01-02 12:57 | NUR ---
NOTIFIED DR. HERNANDEZ OF UNCONTROLLED PAIN IN PT BACK AND NECK. PLAN TO CT BACK AND NECK PER DR MONTERROSO. NEW ORDERS INCOMING FOR IV PAIN MEDICATION.
--- NOTE | 2022-01-02 16:09 | NUR ---
PT TAKEN TO CT FOR SCAN OF FULL SPINE. 50MCG FENTANYL GIVEN FOR PAIN RELIEF. ON RETURN TO ICU, PT C/O INCREASED WOB. INCREASED O2 TO 4L NC, PT TACHYPNEIC IN THE 30s, HR AFIB IN THE 130s-150S. NOTIFIED DR HERNANDEZ, CONSULTS TO PULM ENTERED. STAT CXR DONE, PT SOUNDS DIMINISHED WITH CRACKLES IN THE BASES. PT VERY UNCOMFORTABLE WITH BACK/NECK PAIN. PAGED DR. VILLATORO RE: AFIB. NO NEW ORDERS AT THIS TIME.
[2022-01-02 16:59] LABS: BE(vivo) -13.9 mmol/L (-2 to +3); HCO3 11.1 mmol/L (22.0-26.0); PO2 83.2 mmHg (80.0-100.0); sO2 95.2 % (92.0-98.0)
[2022-01-02 17:00] LABS: PCO2 24.4 mmHg (35.0-45.0); pH 7.276 (7.360-7.450)
--- NOTE | 2022-01-02 20:10 | NUR ---
At 1700 I assumed care of pt. Craig ordered pH and I called the results to Dr Chairez and he ordered CVP. Then at 1845 pt's HR was 155. I called cardiology who ordered amio bolus and amio continuous drip at 1mg/min and do not titrate down until cardiology specifically orders to. At [address] Chairez back with CVP of 14 and we both agreed that clinically pt still appears to be intravascularly dehydrated. At 1900 I reported off to SARITA Bach and notified her of all the changes.
[2022-01-03] VITALS (97 sets, daily range): BP systolic 64–150; BP diastolic 30–72
[2022-01-03 03:43] LABS: BE(vivo) -17.5 mmol/L (-2 to +3); HCO3 10.3 mmol/L (22.0-26.0); PO2 161.4 mmHg (80.0-100.0); pH 7.139 (7.360-7.450); sO2 98.5 % (92.0-98.0)
[2022-01-03 04:49] LABS: HEMATOCRIT 34.3 % (42.0-52.0); HEMOGLOBIN 10.7 gm/dL (14.0-18.0); MCH 29.9 pg (26.0-34.0); MCHC 31.2 g/dL (28.0-37.0); MCV 95.8 fL (80.0-100.0); RBC 3.58 mil/uL (4.50-6.00); RDW 18.4 % (10.5-14.5); WBC 20.7 thou/uL (4.0-11.0)
[2022-01-03 05:15] LABS: ALBUMIN 2.1 g/dL (3.4-5.0); CALCIUM 6.7 mg/dL (8.5-10.1); CREATININE 2.9 mg/dL (0.7-1.3); TOTAL BILIRUBIN 1.1 mg/dL (0.2-1.0); TOTAL PROTEIN 4.9 g/dL (6.4-8.2)
--- NOTE | 2022-01-03 08:25 | NUR ---
Spoke to daughter Julianne again this AM. She seemed very anxious to hear that pt is getting worse and requiring more oxygen and getting more lethargic/tired. Julianne wanted to speak with one of the doctors today and suggested that the dr talk to her and she will tell her mother, pt's , Chel, because "Chel gets very anxious when talking to the doctors". I told her I would let the doctors know.
--- NOTE | 2022-01-03 09:21 | NUR ---
PLEASE REFER TO OT VARIANCE
[2022-01-03 10:11] LABS: BE(vivo) -12.7 mmol/L (-2 to +3); HCO3 15.2 mmol/L (22.0-26.0); PCO2 42.4 mmHg (35.0-45.0); PO2 138.7 mmHg (80.0-100.0); sO2 98.1 % (92.0-98.0)
[2022-01-03 10:12] LABS: pH 7.173 (7.360-7.450)
--- NOTE | 2022-01-03 10:40 | NUR ---
Report passed on from bedside nurse. Discussed during los with the attending physician. Positive COVID, enhanced isolation. Herminio was requiring NRB 15.0LPM and then placed on bipap. Discoloration noted from windows to knees and toes. Daughter requested to be 1st contact, not mom because makes mom have anxiety. Will placed on chart listed 1st and daughter 2nd. Cm team passed on information to bedside and unit nurse supervisor of officials. Physician to talk with and daughter. Bedside nurse had set up face time with ipad for family. No anticipated weekend dc. Will cont. following as needed.
--- NOTE | 2022-01-03 12:33 | NUR ---
CONSULTED NEPHRO DR ANDERSON AT 1117. AT 1215 PUT IN STRAIGHT CATH ORDERS BUT PT HAS A LI. I REPAGED DR ANDERSON AND HE CAME TO PT BEDSIDE AND SAW PT. I EXPLAINED THAT PT IS ON PRESSORS, SEPSIS PROTOCAL NS 126, HAD A 1 L BOLUS LAST NIGHT AND ONLY 100ML OF URINE LAST NIGHT AND 12ML FOR ME TODAY.
--- NOTE | 2022-01-03 13:23 | HC ---
[facility] [place] [address] CONSULTATION Name: JO NUNEZ Room #: 239-P [facility] IN .R.#: [id number] Admission: 01/01/22 Attend Phys: Seamus Arevalo MD Discharge: Date of : 47 Report #: [id number] THIS REPORT FOR: cc: Chasity Sandoval MD, Paula V. MD Althoff, Jeffrey R. MD ~ DATE OF SERVICE: 01/02/2022 CHIEF COMPLAINT: Traumatic wounds and cellulitis. HISTORY OF PRESENT ILLNESS: This is a 76-year-old male patient with a history of coronary artery disease and congestive heart failure who was admitted to the hospital. He is in the ICU with COVID-19, atrial fibrillation with rapid ventricular response. He is having some difficulty breathing and chronic back pain, but was noted to have some ulcerations to his leg, knee and elbow and I have been asked to see him with regard to wound care. PAST MEDICAL HISTORY: Positive for history of coronary artery disease, status post CABG; severe mitral valve insufficiency, status post mitral valve repair; paroxysmal atrial fibrillation; hypertension; hyperlipidemia; spinal stenosis and nonischemic cardiomyopathy. SOCIAL HISTORY: The patient denies alcohol or tobacco use. FAMILY HISTORY: Noncontributory. MEDICATIONS: Include Klor-Con, Lipitor, Colestid, aspirin, Eliquis, budesonide, allopurinol, Levo-T and metoprolol. ALLERGIES: No known drug allergies. REVIEW OF SYSTEMS: CONSTITUTIONAL: The patient denies fever, chills, weight loss. NEUROLOGICAL: The patient denies focal weakness, numbness or tingling. EYES: The patient denies visual changes, redness or drainage. ENT: The patient denies earache, nasal drainage or sore throat. CARDIOVASCULAR: The patient denies chest pain or palpitations. PULMONARY: The patient does complain of shortness of breath and nonproductive cough. GASTROINTESTINAL: Denies nausea or abdominal pain. ORTHOPEDIC: The patient complains of ongoing neck and back pain that are chronic. He is aware of ulceration and skin tears to the extremities. Others systems in a 14-point review of systems are negative. PHYSICAL EXAMINATION: [facility] [address] [place] [address] CONSULTATION Name: JO NUNEZ Room #: 239-P [facility] IN [facility]#: [id number] Admission: 01/01/22 Attend Phys: Seamus Arevalo MD Discharge: Date of : 47 Report #: [id number] VITAL SIGNS: The patient's vital at this time include temperature 36.7, pulse 126, respiratory rate 23, blood pressure 114/67. GENERAL: This is a chronically ill-appearing male patient who appears to be in sjbr-oi-dskhzexg discomfort. HEENT: Head normocephalic. Nose and throat clear. NECK: Supple. LUNGS: Diminished. HEART: Irregular without murmur. ABDOMEN: Soft. Bowel sounds are present. EXTREMITIES: Demonstrate a skin tear to the left elbow and left lateral knee. These are relatively shallow and not infected. There is a small abrasion or venous ulcer to the right pretibial region. It is relatively clean and granulating, but significant drainage and erythema. There is 2+ edema surrounding this area. It is mildly tender. LABORATORY DATA: Sodium 140, potassium 3.7, chloride 107, CO2 of 16, BUN 35. White blood cell count is 18.3 with a hemoglobin of 11.3, hematocrit of 36.4. Lactic acid is 6.9, it was 7.1 on admission. CLINICAL IMPRESSION: 1. Venous type ulceration, right lower extremity with surrounding cellulitis. 2. Traumatic wound to the left elbow and left lateral knee. 3. COVID-19 pneumonia. 4. Atrial fibrillation with rapid ventricular response. 5. Hypertension. 6. Congestive heart failure. 7. Coronary artery disease, status post coronary artery bypass graft. 8. Chronic back and neck pain, status post intrathecal pump. RECOMMENDATIONS: At this point in time, recommend topical gentamicin ointment to all the ulcerated areas with Xeroform and ABD, Kerlix and Elvis to the leg and then Bordered Foam to the knee and elbow all to be changed daily. He will need ongoing nutritional support, continue medical management. I appreciate being asked to see him in consultation. <ELECTRONICALLY SIGNED> By: Jason Roa MD 01/03/22 1323 1444 50 Jason Roa MD /nt
[2022-01-03 14:34] LABS: PROT/CREAT RATIO 3.1; URINE CREATININE-RANDOM* 114.9 mg/dL; URINE PROTEIN-RANDOM* 356.7 mg/dL (<11.9)
--- NOTE | 2022-01-03 14:59 | 2DMMODE ---
[facility] [address] [place] [address] 2 D/M-MODE ECHOCARDIOGRAM Name: JO NUNEZ Room #: 239-P ADM IN M.R.#: [id number] Admission: 01/01/22 Attend Phys: Seamus Arevalo MD Discharge: Date of : 46 Report #: [id number] THIS REPORT FOR: cc: Chasity Sandoval MD, Paula V. MD Park, Jin S. MD ~ APPROVED REPORT Study performed: 01/03/2022 13:59:54 EXAM: Comprehensive 2D, Doppler, and color-flow Echocardiogram Patient Location: ICU Room #: 239 Status: routine BSA: 2.44 HR: 98 bpm BP: 112/59 mmHg Other Information Study Quality: Technically Difficult Technically limited study due to inability to position patient. Indications Atrial Fibrillation CAD Cardiomyopathy Hypertension/HDD 2D Dimensions IVSd: 11.91 (7-11mm) LVOT Diam: 20.23 (18-24mm) LVDd: 54.20 mm PWd: 13.33 (7-11mm) Ascending Ao: 30.98 (22-36mm) LVDs: 42.37 (25-40mm) Left Atrium: 47.84 (27-40mm) Aortic Root: 34.50 mm Aortic Valve AoV Peak Alejandro.: 1.36 m/s AO Peak Gr.: 7.40 mmHg Pulmonary Valve PV Peak Alejandro.: 0.99 m/s PV Peak Gr.: 3.89 mmHg [facility] [address] [place] [address] 2 D/M-MODE ECHOCARDIOGRAM Name: JO NUNEZ Room #: 239-P ADM IN M.R.#: [id number] Admission: 01/01/22 Attend Phys: Seamus Arevalo MD Discharge: Date of : 47 Report #: [id number] Tricuspid Valve TR Peak Alejandro.: 3.13 m/s TR Peak Gr.: 39.16 mmHg PA Pressure: 39.00 mmHg Left Ventricle Technically limited study The left ventricle is normal size. Mild concentric left ventricular hypertrophy. Left ventricular systolic function is mildly decreased. LVEF is 45%. This study is not technically sufficient to allow evaluation of the LV diastolic function. Right Ventricle Right ventricle is not well visualized. Atria Left atrium is dilated. Right atrium is dilated. Aortic Valve The aortic valve is normal in structure. The Aortic valve is sclerotic. No aortic regurgitation is present. There is no aortic valvular stenosis. Mitral Valve Mitral valve repair Mild mitral regurgitation. No evidence of mitral valve stenosis. Tricuspid Valve The tricuspid valve is normal in structure. There is mild tricuspid regurgitation. Estimated PAP 39 mmHg plus the right atrial pressure. Pulmonic Valve The pulmonary valve is normal in structure. There is no pulmonic valvular regurgitation. Great Vessels The aortic root is normal in size. The inferior vena cava is not well visualized. Pericardium There is no pericardial effusion. <Conclusion> Technically limited study The left ventricle is normal size. Mild concentric left ventricular hypertrophy. [facility] [address] [place] [address] 2 D/M-MODE ECHOCARDIOGRAM Name: JO NUNEZ Room #: 239-P ADM IN M.R.#: [id number] Admission: 01/01/22 Attend Phys: Seamus Arevalo MD Discharge: Date of : 47 Report #: [id number] Left ventricular systolic function is mildly decreased. LVEF is 45%. Right ventricle is not well visualized. Left atrium is dilated. The Aortic valve is sclerotic. Mild mitral regurgitation. There is mild tricuspid regurgitation. Estimated PAP 39 mmHg plus the right atrial pressure. <ELECTRONICALLY SIGNED> By: Sandro Maurice MD 01/03/228 57 57 Sandro Maurice MD /INF
[2022-01-03 15:33] LABS: BE(vivo) -8.4 mmol/L (-2 to +3); HCO3 16.1 mmol/L (22.0-26.0); PCO2 30.2 mmHg (35.0-45.0); PO2 116.8 mmHg (80.0-100.0); pH 7.345 (7.360-7.450); sO2 98.1 % (92.0-98.0)
--- NOTE | 2022-01-03 19:46 | NUR ---
Charge nurse said pt's called and wanted me to call her back. I called Chel back at [phone] and she said that she wanted to be included on the phone conversations with the doctors and nurses. Chel said that her daughter is updating her about Herminio's conditions but she feels like she wants to talk to the healthcare staff too. I told her that her daughter Julianne was concerned that Chel doesn't take bad news well and Chel said "I have lived a long life and just lost my sister last year and I survived. I may not be able to walk very good but I manage my own medicine, I go to my doctors offices when my daughter drops me off, I have nothing wrong with my mind". I asked Chel if she had a stroke or head injury in the past that makes her forget things or have a hard time making decisions and she said "no my mind is fine." I suggested that Chel talk to her daughter and tell her that she wants to be on the phone too with the doctors and nurses. Chel appeared A&Ox4 over the phone. I then told doctor Mickey this when he came to see the pt again at 1900 and I showed him the copy of the DPO papers that the pt signed in 2016, designating Chel first to make decisions then the daughter Julianne. Mickey said please put Chel's phone number in the chart and we will talk to Chel from now on.
--- NOTE | 2022-01-03 20:52 | NUR ---
2051 - PTS CALLED UP AND ASKED TO LEAVE A MESSAGE. SHE STATED THE SHE WANTED TO GIVE "CONSENT TO INTUBATE" I GAVE AN UPDATE ON PATIENTS CONDITION AND EXPLANINED THAT RIGHT NOW THE PT IS STABLE ON HIS BIPAP AND THERE WAS CURRENTLY NO PLAN TO INTUBATE. SHE ALSO STATED THAT SHE DIDNT WANT TO CAUSE US ANYMORE "TROUBLE" WILL ALL THE CALLS AND SHE IS GIVING PERMISSION TO TALK TO THE DAUGHTER FROM NOW ON. SHAHAB, THE RN TAKING CARE OF THIS PT CHUYTRISTAN WAS BUSY AT THE TIME OF THIS CALL. SHE HAD PREVIOUSLY SPOKEN TO THE DAUGHTER AND THE PTS DGTR INSISTED THAT SHE BE CALLED INSTEAD OF THE PTS BECAUSE SHE TAKES "TOO MANY SLEEPING PILLS" AND DOESNT WAKE UP WHEN THE PHONE RINGS.
[2022-01-04] VITALS (86 sets, daily range): BP systolic 87–151; BP diastolic 39–107
[2022-01-04 01:24] LABS: HEMATOCRIT 30.1 % (42.0-52.0); HEMOGLOBIN 9.7 gm/dL (14.0-18.0); MCH 29.9 pg (26.0-34.0); MCHC 32.2 g/dL (28.0-37.0); MCV 92.6 fL (80.0-100.0); PLATELET COUNT 107 thou/uL (150-400); RBC 3.25 mil/uL (4.50-6.00); RDW 18.8 % (10.5-14.5); WBC 16.7 thou/uL (4.0-11.0)
[2022-01-04 01:45] LABS: ALBUMIN 1.8 g/dL (3.4-5.0); CALCIUM 6.4 mg/dL (8.5-10.1); CREATININE 3.2 mg/dL (0.7-1.3); PHOSPHORUS 5.1 mg/dL (2.6-4.7); POTASSIUM 4.2 mmol/L (3.5-5.1)
[2022-01-04 01:48] LABS: ALBUMIN 1.8 g/dL (3.4-5.0); CALCIUM 6.5 mg/dL (8.5-10.1); CREATININE 3.2 mg/dL (0.7-1.3); POTASSIUM 4.2 mmol/L (3.5-5.1); TOTAL BILIRUBIN 1.3 mg/dL (0.2-1.0); TOTAL PROTEIN 4.7 g/dL (6.4-8.2)
[2022-01-04 02:08] LABS: ANISOCYTOSIS 2+; SCHISTOCYTES FEW
[2022-01-04 02:11] LABS: OVALOCYTES 1+
[2022-01-04 04:04] LABS: BE(vivo) -8.9 mmol/L (-2 to +3); HCO3 15.1 mmol/L (22.0-26.0); PCO2 26.9 mmHg (35.0-45.0); PO2 107.1 mmHg (80.0-100.0); pH 7.366 (7.360-7.450); sO2 97.9 % (92.0-98.0)
--- NOTE | 2022-01-04 08:49 | NUR ---
updated Julianne, daughter, on current patients status, POC, and answered family questions at 0815 01/04/22.
--- NOTE | 2022-01-04 15:32 | NUR ---
Julianne-raquel, updated on patient condition, POC, and answered all questions at 1008 01/04/22
--- NOTE | 2022-01-04 21:53 | NUR ---
LOW UO NOTED. F/C IRIGATED WITH 20 ML NSS, IMMEDIATE RETURN OF 22 ML YELLOW FLUID NOTED. PT'S DAUGHTER, CAMILLE, CALLED AND SHE WAS UPDATED ON HER FATHERS STATUS.
[2022-01-05] VITALS (83 sets, daily range): BP systolic 69–183; BP diastolic 19–141
[2022-01-05 05:33] LABS: ABSOLUTE NEUTROPHILS 9.3 thou/uL (1.4-8.2); BASOPHILS 0.2 % (0.0-2.0); EOSINOPHILS 1.5 % (0.0-3.0); HEMATOCRIT 32.8 % (42.0-52.0); HEMOGLOBIN 10.7 gm/dL (14.0-18.0); LYMPHOCYTES 2.4 % (24.0-44.0); MCH 30.2 pg (26.0-34.0); MCHC 32.6 g/dL (28.0-37.0); MCV 92.8 fL (80.0-100.0); MONOCYTES 4.7 % (1.0-8.0); PLATELET COUNT 89 thou/uL (150-400); POLYS 91.2 % (36.0-66.0); RBC 3.53 mil/uL (4.50-6.00); RDW 18.5 % (10.5-14.5); WBC 10.2 thou/uL (4.0-11.0)
[2022-01-05 05:43] LABS: CALCIUM 6.5 mg/dL (8.5-10.1); CREATININE 3.9 mg/dL (0.7-1.3); POTASSIUM 4.7 mmol/L (3.5-5.1); TOTAL BILIRUBIN 1.9 mg/dL (0.2-1.0); TOTAL PROTEIN 5.3 g/dL (6.4-8.2)
[2022-01-05 05:47] LABS: BE(vivo) -14.3 mmol/L (-2 to +3); HCO3 12.1 mmol/L (22.0-26.0); PCO2 30.5 mmHg (35.0-45.0); PO2 59.6 mmHg (80.0-100.0); sO2 86.1 % (92.0-98.0)
[2022-01-05 05:48] LABS: pH 7.218 (7.360-7.450)
[2022-01-05 19:50] LABS: BE(vivo) -15.9 mmol/L (-2 to +3); HCO3 14.1 mmol/L (22.0-26.0); PCO2 51.2 mmHg (35.0-45.0); PO2 88.3 mmHg (80.0-100.0); sO2 92.3 % (92.0-98.0)
[2022-01-05 19:51] LABS: pH 7.058 (7.360-7.450)
--- NOTE | 2022-01-05 23:14 | NUR ---
1950 ABG DRAWN AND RESULTED BY RESPIRATORY THERAPY.DAUGHTER, JC, CALLED AT 2011 TO REQUEST TO COME SEE PT "TO SAY GOODBYE TO MY DAD." REQUEST APPROVED. NURSING WOOD HEEL BACK LINER AND SECURITY AWARE. CALL PLACED TO PULMONOLGIST AT 2018, MESSAGE LEFT TO RETURN CALL FOR ABG RESULTS. 2ND CALL PLACED TO SECURITIES SALES ASSOCIATE AT 2030, NO ANSWER. 2043, DAUGHTER AND GRANDAUGHTER AT BEDSIDE. FAMILY INSTRUCTED ON PROPER PPE. 3RD ATTEMPT TO CALL SECURITIES SALES ASSOCIATE AT 2053, NO ANSWER. AT 2101 , GREER, CALLED TO GET AN UPDATE ON HUSBANDS CONDITION. GREER STATED THAT IF PT'S HEART WERE TO STOP, SHE DID NOT WANT CPR. "HE HAS SUFFERED TOO MUCH." WISHES VERIFED BY A 2ND RN, Tiff MIRANDA. CALL PLACED TO SECURITIES SALES ASSOCIATE AT 2107 TO DISCUSS ABG AND 'S WISHES, NO ANSWER. CALL PLACED TO WEB PRESS OPERATOR HELPER OFFSET DOVETAIL MACHINE OPERATOR, DETAILED MESSAGE LEFT REGARDING CONVERSATION WITH AND HER WISHES TO MAKE PT A DNR. SPOKE WITH DR. JAMES, PULMONOLGIST AT 2125. HE REQUESTED TO RAISE THE RESPIRATORY RATE TO 22 BPM. IN REGARDS TO WIFES WISHES ABOUT CODE STATUS, HE DID NOT WISH TO CHANGE CODE STATUS AT THIS TIME. AT 2207 DOVETAIL MACHINE OPERATOR RETURNED CALL AND STATED BECAUSE OF PT'S WORSENING CONDITION, TO CHANGE CODE STATUS TO A DNR PER THE 'S WISHES.
--- NOTE | 2022-01-05 23:54 | NUR ---
CALL PLACED TO MTN, SPOKE WITH ALFRED. GAVE A DETAILED ACCOUNT OF PT'S STATUS. PT'S MTN #- [phone].
[2022-01-06] VITALS (61 sets, daily range): BP systolic 70–133; BP diastolic 12–45
[2022-01-06 06:14] LABS: ALBUMIN 1.7 g/dL (3.4-5.0); CREATININE 4.2 mg/dL (0.7-1.3); PHOSPHORUS 10.2 mg/dL (2.6-4.7); POTASSIUM 4.9 mmol/L (3.5-5.1)
--- NOTE | 2022-01-06 06:43 | NUR ---
PT'S GREER UPDATED ON PT'S CONDITION.
--- NOTE | 2022-01-06 07:06 | NUR ---
PATIENT IS INTUBATED/SEDATED, WILL PLACE ON HOLD. WILL NEED NEW ORDERS ONCE PATIENT IS MEDICALLY APPROPRIATE.
--- NOTE | 2022-01-06 10:59 | NUR ---
Pt NOW INTUBATED AND SEDATED. WILL PLACE Pt ON HOLD AND AWAIT NEW ORDERS TO INITIATE P.T. ONCE Pt IS MEDICALLY STABLE/READY TO PARTICIPATE WITH P.T.
--- NOTE | 2022-01-06 16:20 | NUR ---
Patient extubated and BP gtts stopped, fent gtt started for comfort at 1455 per MD order, Family at bedside. TOD 1515. MD aware. Pronounced at bedside. Belonging sent with daughter- Maritza. Nursing summary worksheet completed. House Sup called. GOLD lew[employer] notified to fruit picker body.
== END 2022-01-06 15:15 | DRG 871 ==
LOC: ER 08:26 → ICU 11:17 → EROBS 11:17 → ICU 15:08
PROVIDERS: Emergency Medicine; Internal Medicine; Internal Medicine Nephrology; Nurse Practitioner; Pediatrics; ADMIT Hospitalist; ATTEND Hospitalist
PROC: 02HV33Z Insertion of Infusion Device into Superior Vena Cava, Percutaneous Approach (ICD-10-PCS; 2022-01-01)
PROC: 5A09457 Assistance with Respiratory Ventilation, 24-96 Consecutive Hours, Continuous Positive Airway Pressure (ICD-10-PCS; 2022-01-03)
PROC: 0BH17EZ Insertion of Endotracheal Airway into Trachea, Via Natural or Artificial Opening (ICD-10-PCS; principal; 2022-01-05)
PROC: 5A1935Z Respiratory Ventilation, Less than 24 Consecutive Hours (ICD-10-PCS; 2022-01-05)
DX: A41.9 Sepsis, unspecified organism (principal); U07.1 COVID-19; R65.21 Severe sepsis with septic shock; J96.01 Acute respiratory failure with hypoxia; N17.0 Acute kidney failure with tubular necrosis; I42.8 Other cardiomyopathies; I13.0 Hypertensive heart and chronic kidney disease with heart failure and stage 1 through stage 4 chronic kidney disease, or unspecified chronic kidney disease; E46 Unspecified protein-calorie malnutrition; G93.40 Encephalopathy, unspecified; L03.115 Cellulitis of right lower limb; I50.9 Heart failure, unspecified; I48.0 Paroxysmal atrial fibrillation; E87.6 Hypokalemia; Z79.899 Other long term (current) drug therapy; E03.9 Hypothyroidism, unspecified; N18.9 Chronic kidney disease, unspecified; Z68.39 Body mass index [BMI] 39.0-39.9, adult; E78.5 Hyperlipidemia, unspecified; Z95.1 Presence of aortocoronary bypass graft; I25.10 Atherosclerotic heart disease of native coronary artery without angina pectoris; G89.29 Other chronic pain
CPT/HCPCS: 10078; 32100